=== PATIENT | female | born 1945 | race Caucasian/White ===

== ENCOUNTER → 2016-06-20 18:48 | Outpatient (CLI) | payer MEDICARE ==
[2015-02-02 13:07] VITALS: BMI 35.0
[~2016-06-20 18:48] MED LIST: ACCUPRIL40 MG PO; BAYER CHEWABLE81 MG PO; BRILINTA90 MG PO; CARDURA4 MG PO; COREG25 MG PO; GEMFIBROZIL PO; GLUCOPHAGE500 MG PO; GLUCOTROL 5 MG T5 MG PO; NORVASC5 MG PO; PRAVACHOL40 MG PO; PROTONIX40 MG PO
== END | disposition home or self-care (01) ==
LOC: D.LABREF 18:48
DX: N39.0 Urinary tract infection, site not specified (principal)

== ENCOUNTER 2017-02-17 07:30 | Inpatient (IN) | payer MEDICARE ==
--- NOTE | ~2017-02-17 | HEMODYNAMI ---
PATIENT:SABIHA POP MEDICAL RECORD: [id number] : 41 LOC[facility] [id number] ADMISSION DATE: 02/17/17 Generatedon:02/19/20178:54 Patient name: SABIHA POP Patient #: [id number] SSN: : Date of study: 02/19/2017 Page: Of Hemodynamic Procedure Report Patient Data Patient Demographics Procedure consent was obtained First Name: SABIHA Gender: Female Last Name: DONN : 1945 [facility] Initial: ALLAN Age: 71 year(s) Patient #: [id number] Race: Additional ID: [id number] Contact details Address: [address] [place] [address] DRIVE State: [place] City: [place] Zip code: [address] Past Medical History History of disease Date Diagnosis Comments CAD Allergies Allergen Reaction Date Comments Reported Other allergy 01/24/2015 steroid shots Other allergy 02/19/2017 Steriodal muscle blockers, methylprednisolone Admission Admission Data Admission Date: 02/17/2017 Admission Time: 9:58 Room #: D.2124 Lab Results Lab Result Date: 02/19/2017 Lab Result Time: 0:00 Biochemistry Name Units Result Min Max BUN mg/dl 21 --(----)-* 7 18 Creatinine mg/dl 1.2 --(---*)-- 0.6 1.3 CBC Name Units Result Min Max Hemoglobin g/dl 12.2 *-(----)-- 13.5 17.5 Procedure Procedure Types Cath Procedure Diagnostic Procedure LHC LHC w/Coronaries FFR/IVUS Intra-Coronary IVUS Initial PCI Procedure Coronary Stent Initial Miscellaneous Procedures Moderate Sedation up to 15 minutes Procedure Description Procedure Date Procedure Date: 02/19/2017 Procedure Start Time: 8:29 Procedure End Time: 8:50 Procedure Staff Name Function J Luis Rodríguez MD Performing Physician Rich Mercer RT Scrub Melissa Givens RT Monitor Kiara Kowalski RN Nurse Procedure Data Cath Procedure Fluoroscopy Diagnostic fluoroscopy Total fluoroscopy Time: 5 time: 5 min min Diagnostic fluoroscopy Total fluoroscopy dose: 816 dose: 816 mGy mGy Contrast Material Contrast Material Type Amount (ml) Isovue 300 98 Entry Location Entry Primary Successful Side Size Upsize Upsize Entry Closure Hernández ccessful Closure Location (Fr) 1 (Fr) 2 (Fr) Remarks Device Remarks Radial Right 6 Fr Mechanical tr artery Short Compression Estimated blood loss: 10 ml Diagnostic catheters Device Type Used For End Catheter Placement Diagnostic Terumo 5Fr Procedure [place] 110cm catheter Procedure Complications No complications Procedure Medications Medication Administration Route Dosage Oxygen NC 2 l/min 0.9% NaCl I.V. 50 ml/hr Lidocaine 2% added to field 20 Heparin Flush Bag added to field 2 bags (1000units/500ml NS) Versed I.V. 1 mg Fentanyl I.V. 50 mcg Radial Cocktail I.A. 1 syringe (Verapomil 2mg/Nitro 400mcg/Heparin 1500units) Heparin Bolus I.V. 4000 units Versed I.V. 1 mg Hemodynamics Rest HGB: 12.2 (g/dl) Heart Rate: 104 (bpm) Snapshots Pre Cath Intra NCS Post Cath Vital Signs Time Heart Resp SPO2 NIBP (mmHg) Rhythm Pain Sedation Rate (ipm) (%) Status Level (bpm) 8:14:15 93 21 98 182/103(150) NSR 0 (11) 10(A) , No pain 8:18:39 87 17 99 202/97(159) NSR 0 (11) 10(A) , No pain 8:23:08 107 27 97 201/89(156) NSR 0 (11) 10(A) , No pain 8:27:36 104 20 97 203/87(135) NSR 0 (11) 10(A) , No pain 8:32:06 100 25 98 194/99(133) NSR 0 (11) 9(A) , No pain 8:36:24 105 24 96 138/74(102) NSR 0 (11) 9(A) , No pain 8:41:36 95 22 95 159/74(114) NSR 0 (11) 9(A) , No pain 8:45:58 91 22 97 176/74(111) NSR 0 (11) 10(A) , No pain 8:50:26 96 17 97 194/82(113) NSR 0 (11) 10(A) , No pain Medications Time Medication Route Dose Verified Delivered Reason Notes Effectiveness by by 8:08:44 Oxygen NC 2 l/min J Luis Craig used for Anne Kowalski RN procedure 8:12:37 0.9% NaCl I.V. 50 J Luis Alarconie Per physician ml/hr Anne Kowalski RN 8:12:56 Lidocaine 2% added 20ml J Luis Dietz for local to vial Anne Rodríguez MD anesthetic field 8:13:01 Heparin Flush added 2 bags J Luis Dietz used for Bag to Anne Rodríguez MD procedure (1000units/500ml field NS) 8:26:00 Fentanyl I.V. 50 mcg J Luis Craig for sedation Anne Kowalski RN 8:26:55 Versed I.V. 1 mg J Luis Craig for sedation Anne Kowalski RN 8:32:35 Radial Cocktail I.A. 1 J Luis Dietz for (Verapomil syringe Anne Rodríguez MD vasodilation 2mg/Nitro 400mcg/Heparin 1500units) 8:35:24 Versed I.V. 1 mg J Luis Craig for sedation Anne Kowalski RN 8:38:39 Heparin Bolus I.V. 4000 J Luis Craig for verif ied units Anne Kowalski RN anticoagulation with dr rodríguez Procedure Log Time Note 7:44:53 Informed consent obtained and on chart 7:45:27 Diagnostic Cath status Elective 7:45:29 Melissa Givens RT(R) sent for patient. Start room use. 7:45:30 Time tracking: Regular hours 7:45:33 Plan of Care:Hemodynamics will remain stable., Cardiac rhythm will remain stable., Comfort level will be maintained., Respiratory function will remain adequate., Patient/ family verbilizes understanding of procedure., Procedure tolerated without complication., Recovers from procedure without complications.. 7:45:47 H&P Date Dictated: 02/17/2017 Within 30 days and on chart.. 8:08:44 Oxygen 2 l/min NC was administered by Kiara Kowalski RN; used for procedure; 8:12:37 0.9% NaCl 50 ml/hr I.V. was administered by Kiara Kowalski RN; Per physician; 8:12:56 Lidocaine 2% 20ml vial added to field was administered by J Luis Rodríguez MD; for local anesthetic; 8:13:01 Heparin Flush Bag (1000units/500ml NS) 2 bags added to field was administered by J Luis Rodríguez MD; used for procedure; 8:13:06 Vital chart was started 8:21:00 Patient received from Med II to CCL 2 Alert and oriented. Tansferred to table in Supine position. 8:21:01 Warm blankets applied, and deysi hugger turned on for patient comfort. 8:21:02 Correct patient and procedure confirmed by team. 8:21:03 ECG and BP/O2 sat monitors applied to patient. 8:21:05 Baseline sample Acquired. 8:21:12 Full Disclosure recording started 8:21:16 Pre-procedure instructions explained to patient. 8:21:20 Patient NPO since Midnight. 8:22:08 Patient allergic to Other allergySteriodal muscle blockers, methylprednisolone 8:22:12 Is patient on blood thinner?Yes 8:22:18 ACC The patient was administered the following blood thiners within the last 24 hours: ACCAspirin, ACCBrilinta 8:22:21 Patient diabetic? Yes. 8:22:22 If diabetic: On Metformin? Yes 8:22:26 If on Metformin: Last Dose? 02/18/2017 8:22:35 Snore? Yes 8:22:38 Sleep apnea? No 8:22:47 Patient pain scale 0/10 ?. 8:22:57 IV patent on arrival in left hand, left forearm with 0.9% NaCl at [facility]. 8:23:32 Lab Result : BUN 21 mg/dl 8:23:32 Lab Result : Hemoglobin 12.2 g/dl 8:23:32 Lab Result : Creatinine 1.2 mg/dl 8:23:37 Lab results completed and on chart. 8:23:41 Right Radial & Right Groin area was prepped with chlora-prep and draped in sterile fashion 8:23:41 Alarms reviewed by R. N. 8:23:42 Sharps counted by scrub and verified by RDonN. 8:23:43 Physician paged 8:23:44 Physician arrived 8:24:49 --------ALL STOP TIME OUT------ 8:24:50 Final Timeout: patient, procedure, and site verified with staff and physician. All members of the team are in agreement. 8:24:52 Right Radial & Right Groin site verified by team. 8:24:55 Physical assessment completed. ASA score P 3 - A patient with severe systemic disease as per J Luis Rodríguez MD. 8:25:00 Sedation plan: IV Moderate Sedation Versed, Fentanyl 8:25:06 Use device set Radial Dx 8:25:08 Acist Syringe opened to sterile field. 8:25:08 Medline Cath Pack opened to sterile field. 8:25:08 Bag Decanter opened to sterile field. 8:25:09 Terumo 6Fr Slender Glidesheath opened to sterile field. 8:25:09 St Kyaw 260cm J .035 wire opened to sterile field. 8:25:10 Acist Hand Control opened to sterile field. 8:25:10 Acist Manifold opened to sterile field. 8:25:11 Tegaderm 4 x 4 opened to sterile field. 8:25:11 MBrace Wrist Support opened to sterile field. 8:26:00 Fentanyl 50 mcg I.V. was administered by Kiara Kowalski RN; for sedation; 8::55 Versed 1 mg I.V. was administered by Kiara Kowalski RN; for sedation; 8:27:21 Zero performed for pressure channel P1 8:29:28 Procedure started. 8:29:41 Local anesthetic to right radial artery with Lidocaine 2% by J Luis Rodríguez MD.INITIAL ACCESS ONLY 8:31:29 Local anesthetic to right radial artery with Lidocaine 2% by J Luis Rodríguze MD.ADDITIONAL ACCESS 8:31:38 A 6 Fr Short sheath was inserted into the Right Radial artery 8:32:34 A Diagnostic Terumo 5Fr [place] 110cm catheter was advanced over the wire and used for Procedure. 8:32:35 Radial Cocktail (Verapomil 2mg/Nitro 400mcg/Heparin 1500units) 1 syringe I.A. was administered by J Luis Rodríguez MD; for vasodilation; 8:34:07 LV angiography performed. 8:34:14 EF : 35 % 8:34:28 RCA angiography performed. 8:34:48 Catheter removed. 8:35:24 Versed 1 mg I.V. was administered by Kiara Kowalski RN; for sedation; 8:35:35 Cordis 6FR XBLAD 3.5 guide catheter opened to sterile field. 8:35:40 LCA angiography performed. 8:38:07 Doe Whisper J 300cm 0.014 guide wire opened to sterile field. 8:38:09 Merit BasixCompak Inflation Kit opened to sterile field. 8:38:10 [place] Chilkat Eagleye IVUS Catheter opened to sterile field. 8:38:23 whisp wire advanced. 8:38:39 Heparin Bolus 4000 units I.V. was administered by Kiara Kowalski RN; for anticoagulation; verified with dr rodríguez 8:39:46 Wire advanced across lesion. 8:39:55 IVUS catheter advanced over wire. 8:41:58 IVUS catheter removed over wire. 8:43:55 Inflation Number: 1 A [place] OTW 3.5 x 38 stent was prepped and advanced across the Mid LAD. The stent was deployed at 17 FITO for 0:10 (min:sec). 8:46:14 Terumo TR Band Standard opened to sterile field. 8:46:28 Stent catheter was removed intact over wire. 8:46:29 Wire removed. 8:46:54 Guide catheter removed. 8:47:07 Sheath removed intact; hemostasis achieved with Mechanical Compression to the Right Radial artery. 8:47:10 Procedure ended.(Physican Out) 8:47:23 Fluoroscopy time 05.00 minutes. 8:47:37 Fluoroscopy dose: 816 mGy 8:47:37 Flurop Dose total: 816 8:47:41 Contrast amount:Isovue 300 98ml. 8:47:43 Sharps counted by scrub and verified by R.N. 8:47:48 TR band inflated with 10cc of air. 8:47:50 Insertion/operative site no bleeding no hematoma. 8:48:12 Post right radial artery:stable 8:48:14 Post Procedure Pulses reassessed and unchanged 8:48:22 Post-procedure physical assessment completed. ASA score P 3 - A patient with severe systemic disease as per J Luis Rodríguez MD. 8:48:25 Post procedure rhythm: unchanged. 8:48:29 Estimated blood loss: 10 ml 8:48:31 Post procedure instruction explained to patient.Patient verbalizes understanding. 8:49:06 Procedure type changed to Cath procedure, Diagnostic procedure, LHC, LHC w/Coronaries, FFR/IVUS, Intra-Coronary IVUS Initial, PCI procedure, Coronary Stent Initial, Miscellaneous Procedures, Moderate Sedation up to 15 minutes 8:49:24 Procedure and supply charges have been captured, reviewed, submitted and are correct. 8:49:53 Procedure Complication : No complications 8:50:00 Vital chart was stopped 8:50:01 See physician's report for complete and final results. 8:50:04 Report given to [facility]. 8:50:07 Patient transfered to [facility] with Bed. 8:50:09 Procedure ended. 8:50:09 Full Disclosure recording stopped 8:50:47 End room use (Document Last) Intervention Summary Intervention Notes Time ActionType Lesion and Equipment Action# Pressure Duration Attributes Used 8:43:55 Place stent Mid LAD [place] OTW 1 17 00:10 3.5 x 38 stent Device Usage Item Name Manufacture Quantity Catalog Hospital Part Current Minima l Lot# / Number Charge Number Stock Stock Serial# Code Acist Acist 1 54398 360208 361733 129768 20 Syringe Medical Systems Inc Medline Cardinal 1 [id number] 149917 76417 226082 5 Cath Pack Health Bag Microtek 1 2002S 312111 55736 991072 5 MontaVista [employer] Inc. Terumo 6Fr Terumo 1 [id number] 918514 364595 632[address] Kyaw 1 721447 540966 237219 282665 30 260cm J .035 wire Acist Hand Acist 1 47550 531801 713615 761184 5 Control Medical Systems Inc Acist Acist 1 26810 478620 386516 001541 5 Manifold Medical Systems Inc Tegaderm 4 3M 1 1626W 553639 484452 864607 5 x 4 MBrace Advanced 1 140-0250-00 407147 68693 793206 5 Wrist Vascular Support Dynamics Diagnostic Terumo 1 04-6289 649546 305246 486305 5 Terumo 5Fr Belmont 110cm catheter Cordis 6FR Cardinal 1 [id number] 268308 547790 979585 10 XBLAD 3.5 Health guide catheter Doe Doe 1 [id number] 102728 865036 491486 5 Whisper J Vascular 300cm 0.014 guide wire Merit Merit 1 DN8630 125844 216452 298277 15 BasixCompak Medical Inflation Kit [place] 1 [id number] 929809 018198 131340 8 Chilkat Eagleye IVUS Catheter Brooks OTW Medtronic 1 [id number] 754575 1949623 511919 5 [id number] 3.5 x 38 stent Terumo TR Terumo 1 [id number] 502273 365292 869242 40 Band Standard Signature Audit [place] Stage Time Signature Unsigned Intra-Procedure 02/19/2017 Melissa Givens 8:54:16 AM RT(R) Signatures Monitor : Melissa Givens Signature : RT Date : Time : [id number] [place] [address]
[~2017-02-17 07:30] MED LIST changes: -GEMFIBROZIL PO; +GEMFIBROZIL600 MG PO
[2017-02-17 08:06] LABS: BASOPHILS 0.3 % (0-2); EOSINOPHILS 6.7 % (0-7); HEMATOCRIT 33.2 % (36.0-48.0); HEMOGLOBIN 11.4 g/dL (12-16); IMMATURE GRANULOCYTES 0.6 % (0-5); LYMPHOCYTES 19.6 % (15-50); MCH 32.9 pg (26.0-34.0); MCHC 34.3 g/dL (31.0-37.0); MCV 95.7 fL (80.0-100.0); MEAN PLATELET VOLUME 9.6 fL (7.4-10.4); MONOCYTES 6.6 % (2-11); NEUTROPHILS 66.2 % (40-80); PLATELET COUNT 237 10x3/uL (130-400); RBC 3.47 10x6/uL (4.00-5.40); RDW 13.5 % (11.5-14.5); WBC 9.8 10x3/uL (4.8-10.8)
[2017-02-17 08:22] LABS: ALBUMIN 2.8 g/dL (3.4-5.0); ALKALINE PHOSPHATASE 40 U/L (46-116); ALT (SGPT) 16 U/L (10-68); CALC OSMOLALITY 283 mosm/kg (275-300); CALCIUM 9.4 mg/dL (8.5-10.1); CARBON DIOXIDE 27.8 mmol/L (21.0-32.0); CHLORIDE - SERUM 102 mmol/L (98-107); CREATININE - SERUM 1.1 mg/dL (0.6-1.3); GLUCOSE 192 mg/dL (74-106); POTASSIUM - SERUM 3.9 mmol/L (3.5-5.1); PROTEIN - SERUM 6.5 g/dL (6.4-8.2); SODIUM 139 mmol/L (136-145); UREA NITROGEN 14 mg/dL (7-18); eGFR NON AFRICAN AMERICAN 51 mL/min (90-120)
[2017-02-17 08:35] LABS: CHOL - HDL RATIO 5.3 ratio (2.3-4.1); CHOLESTEROL, TOTAL 160 mg/dL (0-200); CREATINE KINASE 55 UL (21-215); HDL CHOLESTEROL 30 mg/dL (32-96); LDL CHOLESTEROL 73 mg/dL (0-100); LDL-HDL RATIO 2.4 ratio (1.5-3.5); TRIGLYCERIDE 288 mg/dL (30-200)
[2017-02-17 08:36] LABS: TROPONIN-I < 0.017 ng/mL (0.000-0.060)
[2017-02-17] MEDS ORDERED: VITAMIN D31000 UNI2 PO (11:24)
--- NOTE | 2017-02-17 11:59 | NUR ---
RECIEVED FROM ER. LUCIO AND ORIENTED. V/S STABLE HOB UP, CALL LIGHT IN REACH TELEMERTY SHOWS SR. WILL MONITOR
[2017-02-17 12:48] VITALS: BP 148/73
[2017-02-17 17:14] VITALS: BP 169/69
[2017-02-17 19:00] VITALS: BP 158/73
--- NOTE | 2017-02-17 20:00 | NUR ---
PT SITTING UP IN BEDSIDE CHAIR WITH SON AT HER SIDE.SON HAS BEEN OUT TO NURSES STATION ONCE REQUESTING THE EGGCRATE BE PLACED ON HIS MOTHER'S BED THAT WAS ORDERED ON DAY SHIFT. SPOKE WITH DISH MAKER, PRINCE, AND SHE WAS UNAWARE OF ORDER, BUT WILL GET THE EGGCRATE CANDICE.
--- NOTE | 2017-02-17 21:12 | NUR ---
SPOKE WITH CHILD NEUROLOGIST PRINCE AND REMINDED HER THAT EGGCRATE STILL NEEDED.
[2017-02-18] VITALS (7 sets, daily range): BP systolic 123–168; BP diastolic 54–75
--- NOTE | 2017-02-18 01:10 | NUR ---
PAGE TO DR FERREIRA, CARDIOLOGY HAS BEEN CONSULTED FOR NEW ONSET CHF. REPORTED THAT PT IS FEELING "SMOTHERED". TIGHT AIR EXCHANGED NOTED, DO NOT HEAR ANY AUDIBLE CRACKLES. ORDERS RECIEVED FOR IV DRIP OF DOBUTAMINE AT 5 AND BUMEX 2 MG SIVP EVERY 6 HOURS. ATIVAN 0.5MG BY MOUTH EVERY 6 HOURS NEEDED FOR ANXIETY AND DUONEB BREATHING TREATMENTS EVERY 4 HOURS FOR SHORTNESS OF BREATH. RT CURRENTLY IN ROOM PROVIDING BREATHING TREATMENT. CONTROL CHEMIST CONTACTED FOR NEWLY ORDERED MEDS.
--- NOTE | 2017-02-18 02:15 | NUR ---
BUMEX 2MG SIVP HAS BEEN ADMINISTERED. DOBUTAMINE DRIP AT 5MCG/KG/MIN NOW UP AND INFUSING, WT 108KG, INFUSING AT 16.6 ML/HR. PT GIVEN AN ATIVAN 0.5MG BY MOUTH FOR HER ANXIETY. PT/FAMILY EDUCATION ON PURPOSE OF BUMEX IV, THE PURPOSE OF THE DOBUTAMINE DRIP AND THE ATIVAN WAS TO HER HELP BE LESS ANXIOUS. PT STATES SHE IS APPRECIATIVE OF NEW INTERVENTIONS. FAMILY MEMBER STAYING AT BEDSIDE.
[2017-02-18 04:47] LABS: BASOPHILS 0.3 % (0-2); EOSINOPHILS 5.2 % (0-7); HEMATOCRIT 35.2 % (36.0-48.0); HEMOGLOBIN 12.2 g/dL (12-16); IMMATURE GRANULOCYTES 0.8 % (0-5); LYMPHOCYTES 17.3 % (15-50); MCH 32.8 pg (26.0-34.0); MCHC 34.7 g/dL (31.0-37.0); MCV 94.6 fL (80.0-100.0); MEAN PLATELET VOLUME 9.8 fL (7.4-10.4); MONOCYTES 8.2 % (2-11); NEUTROPHILS 68.2 % (40-80); RBC 3.72 10x6/uL (4.00-5.40); RDW 13.5 % (11.5-14.5); WBC 9.2 10x3/uL (4.8-10.8)
[2017-02-18 04:58] LABS: ANION GAP 11.1 mmol/L (8-16); CALCIUM 9.8 mg/dL (8.5-10.1); CREATININE - SERUM 1.3 mg/dL (0.6-1.3)
[2017-02-18 05:01] LABS: PLATELET COUNT 288 10x3/uL (130-400)
[2017-02-18 05:17] LABS: MAGNESIUM - SERUM 0.9 mg/dL (1.8-2.4); POTASSIUM - SERUM 3.1 mmol/L (3.5-5.1)
--- NOTE | 2017-02-18 06:58 | HP ---
PATIENT: SABIHA POP MEDICAL RECORD: [id number] ACCOUNT: [id number] LOCATION:[address] : 41 ADMISSION DATE: 02/17/17 HISTORY AND PHYSICAL EXAMINATION DATE OF ADMISSION: ____ CHIEF COMPLAINT: Chest pain and shortness of breath. HISTORY OF PRESENT ILLNESS: The patient is a 71-year-old female with known history of arteriosclerotic heart disease. The patient was in the office last week, diagnosed with pneumonia. The patient states she is no longer running fever. The antibiotics have helped. She did have some green-yellow sputum initially, had resolved; but last night, she developed substernal chest pain, also had acute shortness of breath, and unable to sleep, presents to the Emergency Room. PAST MEDICAL HISTORY: Her past history is significant in that she has had arteriosclerotic heart disease with 2 stents placed 2 years ago. She has also had history of having hypertension, hyperlipidemia, diabetes mellitus, peripheral neuropathy, vitamin D deficiency, and dependent edema. She had had hysterectomy in 1976. 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 SOCIAL HISTORY: She is retired. She worked at [employer]. She is educated till 12th grade. She is a . FAMILY HISTORY: Father had hyperlipidemia and also asthmatic COPD, of lung cancer at 75. Mother had hyperlipidemia, also hypertension, and diabetes. MEDICATIONS: Include aspirin 81 mg once a day, Coreg 25 one p.o. b.i.d., Plavix 75 mg once a day, doxazosin 4 mg daily, gabapentin 300 mg one 3 times a day, gemfibrozil 600 mg b.i.d., glipizide 10 mg p.o. b.i.d., indapamide 1.25 p.o. q.a.m. p.r.n. swelling, metformin 500 mg two tablets p.o. b.i.d., nateglinide 120 mg p.o. b.i.d., pantoprazole 40 mg once a day, pravastatin 40 mg once a day, quinapril 40 mg once a day, and vitamin D3 1000 international units once a day. ALLERGIES: CORTICOSTEROIDS. REVIEW OF SYSTEMS: CONSTITUTIONAL: She denies any headache, seizure, or syncope. She denies change in visual or auditory acuity. PULMONARY: The patient does report having increasing shortness of breath, worse with lying down. CARDIOVASCULAR: She did have chest pain. She described it as squeezing sensation. She did have shortness of breath. GI: No chronic nausea, vomiting, melena, or hematochezia. : No urgency, frequency, or dysuria. PHYSICAL EXAMINATION: VITAL SIGNS: In the Emergency Room, the patient's temperature was 97.9, her pulse was 87, respirations 24, and blood pressure 158/68. HEENT: Head is normocephalic. No lesions. Ears; TMs are clear. Eyes; pupils are equal, round, and reactive to light. Extraocular movements are intact. Her nasal cavity, oral cavity, and oropharynx are clear. HISTORY AND PHYSICAL [id number] SABIHA POP NECK: Supple. There is no adenopathy. HEART: Regular rate. LUNGS: Clear. ABDOMEN: Soft. Bowel sounds are positive. EXTREMITIES: Her lower extremities have no pretibial edema. DIAGNOSTIC DATA: She had an EKG showing normal sinus rhythm, left bundle-branch block, rate is 91. She had a chest x-ray showing borderline cardiomegaly. LABORATORY DATA: The patient had white count 9.8, hemoglobin 11.4, hematocrit 33.2, and her platelets are 237. Sodium 139, potassium 3.9, chloride is 102, BUN is 14, creatinine 1.1, and glucose is 191. She had an elevated proBNP at 3380. She had negative cardiac enzymes. ASSESSMENT: 1. CHF. 2. Chest pain. History of arteriosclerotic heart disease, stents times 2 two years ago. 3. Hyperlipidemia. 4. Hypertension. 5. Diabetes mellitus. 6. Morbid obesity. PLAN: The patient will be admitted. Cardiology consultation will be obtained. She will be placed on IV Lasix. Also, 50-ounce fluid restriction. The patient will also have an echocardiogram. Continue to follow her cardiac enzymes. TRANSINT:[id number] Voice Confirmation ID: [id number] DOCUMENT ID: [id number] JULIO CHAMBERS MD at 0658 CC: [id number] DICTATION DATE: 02/17/171738 COACH DRIVER: 02/17/170 ADM IN [facility] [address] [facility] [place] [address]
--- NOTE | 2017-02-18 07:10 | NUR ---
RECEIVED REPORT. ASSUMED CARE OF PATIENT. PATIENT SITTING UP TO CHAIR AT BEDSIDE. PATIENTS SON ALSO PRESENT. RESP EVEN AND UNLABORED. DOBUTAMINE INFUSING ORDERED. NO DISTRESS.
--- NOTE | 2017-02-18 09:20 | NUR ---
20 GAUGE PLACED TO LEFT LATERAL AC AREA X 1 STICK. GOOD BLOOD RETURN, EASY FLUSH. TAPED, DATED AND SECURED. NO DISTRESS.
--- NOTE | 2017-02-18 11:31 | NUR ---
FSBS 217. 4 UNITS HUMULOG ADMINISTERED PER SLIDING SCALE.
--- NOTE | 2017-02-18 13:31 | NUR ---
20 GAUGE IV REMOVED FROM RIGHT HAND. IV FLUIDS LEAKING FROM SITE. IV SITE EASILY FLUSHED. NEW DRESSING APPLIED, SITE CONTINUED TO LEAK. NO S/S INFILTRATION. TUBING TIGHT AT ALL HUBS. NO DISTRESS. CATHETER TIP INTACT UPON REMOVAL. PRESSURE APPLIED. 2X2 APPLIED AND SECURED WITH TAPE. NO DISTRESS.
--- NOTE | 2017-02-18 14:17 | NUR ---
22 GAUGE IV PLACED TO LEFT HAND X 1 STICK. GOOD BLOOD RETURN, EASY FLUSH. TAPED DATED AND SECURED. TOELRATED IV PLACEMENT WELL. DOBUTAMINE INFUSING ORDERED.
--- NOTE | 2017-02-18 15:40 | NUR ---
MEDICATED FOR ANXIETY AT THIS TIME. CALL LIGHT WITHIN REACH. NO DISTRESS. FRIENDS AND FAMILY AT BEDSIDE.
--- NOTE | 2017-02-18 17:02 | NUR ---
FSBS 187. 2 UNITS HUMALOG ADMINISTERED PER SLIDING SCALE.
--- NOTE | 2017-02-18 19:25 | NUR ---
ALERT/AWAKE WATCHING TV. DENIES PAIN OR ANY NEEDS. IV IN L HAND WITH DOBUTAMINE INFUSING AT 16.2 ML/HR. 02 ON AT 2L/NC. TELEMETRY LEADS IN PLACE. ORIENTED TO CL FOR ANY NEEDS.
[2017-02-19] VITALS: BP 127/56
[2017-02-19 04:00] VITALS: BP 177/73
[2017-02-19 04:34] LABS: BASOPHILS 0.4 % (0-2); EOSINOPHILS 5.3 % (0-7); HEMATOCRIT 35.1 % (36.0-48.0); HEMOGLOBIN 12.2 g/dL (12-16); IMMATURE GRANULOCYTES 0.5 % (0-5); LYMPHOCYTES 29.2 % (15-50); MCHC 34.8 g/dL (31.0-37.0); MCV 94.9 fL (80.0-100.0); MEAN PLATELET VOLUME 9.7 fL (7.4-10.4); MONOCYTES 8.6 % (2-11); PLATELET COUNT 305 10x3/uL (130-400); RDW 13.5 % (11.5-14.5); WBC 7.3 10x3/uL (4.8-10.8)
[2017-02-19 05:10] LABS: ANION GAP 15.5 mmol/L (8-16); CALCIUM 9.1 mg/dL (8.5-10.1); CARBON DIOXIDE 28.7 mmol/L (21.0-32.0); POTASSIUM - SERUM 3.2 mmol/L (3.5-5.1)
[2017-02-19 05:15] LABS: CREATININE - SERUM 1.2 mg/dL (0.6-1.3)
--- NOTE | 2017-02-19 05:56 | NUR ---
ADMIN 4 UNITS HUMALOG FOR BS 238. HOUSEKEEPING SUPERVISOR HOTEL SET UP FOR HIBICLENS BATH.
--- NOTE | 2017-02-19 07:30 | NUR ---
ASSESSMENT DONE. DENIES NEEDS.
--- NOTE | 2017-02-19 07:50 | NUR ---
TO ADJUNCT BUSINESS INSTRUCTOR PER BED
[2017-02-19 08:52] VITALS: BP 138/60
--- NOTE | 2017-02-19 08:55 | NUR ---
RETURN FROM COLD STORAGE SUPERINTENDENT PER BED. TR-BAND TO RT WRIST.
--- NOTE | 2017-02-19 10:20 | NUR ---
BACK FROM DIRECTOR ENTERPRISE DATA ARCHITECTURE. VS WNL. IV PATENT. FAMILY AT BS. WILL CONT. PLAN OF CARE.
[2017-02-19 15:35] VITALS: BP 103/54
--- NOTE | 2017-02-19 18:06 | NUR ---
WITHOUT CHANGES OR DISTRESS NOTED AT THIS TIME. DENIES NEEDS.
--- NOTE | 2017-02-19 19:45 | NUR ---
ALERT/AWAKE SITTING ON SIDE OF BED. IV IN L HAND INTACT/PATENT. IV IN L UA INTACT SL. TELEMETRY SHOWS [address] WITH FEW PVC'S. BANDAID ON RT WRIST OF HEART CATH SITE. DENIES ANY NEEDS OR DISCOMFORTS.
[2017-02-19 21:47] VITALS: BP 165/74
[2017-02-19 22:09] VITALS: BP 164/74
--- NOTE | 2017-02-19 22:30 | NUR ---
REQUESTED YULIA CRACKERS AND SKIM MILK. EMPTIED URINE IN HAT. NO OTHER NEEDS VOICED.
[2017-02-20 02:33] VITALS: BP 160/78
[2017-02-20 04:21] LABS: BASOPHILS 0.5 % (0-2); HEMATOCRIT 35.4 % (36.0-48.0); IMMATURE GRANULOCYTES 0.5 % (0-5); MCH 32.4 pg (26.0-34.0); MCHC 33.9 g/dL (31.0-37.0); MCV 95.7 fL (80.0-100.0); MEAN PLATELET VOLUME 9.4 fL (7.4-10.4); MONOCYTES 8.3 % (2-11); NEUTROPHILS 56.7 % (40-80); PLATELET COUNT 302 10x3/uL (130-400); RDW 13.8 % (11.5-14.5); WBC 7.3 10x3/uL (4.8-10.8)
[2017-02-20 04:47] LABS: ANION GAP 10.6 mmol/L (8-16); CALCIUM 9.3 mg/dL (8.5-10.1); CREATININE - SERUM 1.2 mg/dL (0.6-1.3); POTASSIUM - SERUM 3.6 mmol/L (3.5-5.1)
--- NOTE | 2017-02-20 05:47 | NUR ---
C/O LEFT HAND IV HURTING. REMOVED AND RESTARTED DOBUTAMINE IN LEFT UA IV.
[2017-02-20 07:07] VITALS: BP 180/77
[2017-02-20 08:00] VITALS: BP 174/76
--- NOTE | 2017-02-20 09:51 | NUR ---
UP AMBULATING HALLWAY WITH PT ASSIST.
[2017-02-20 12:00] VITALS: BP 180/65
--- NOTE | 2017-02-20 12:32 | NUR ---
DCD. TO PRIVATE CAR PER WHEEL CHAIR
--- NOTE | 2017-02-20 14:42 | NUR ---
LYING QUIETY WITH EYES CLOSED. NO DISTRESS NOTED
[2017-02-20 16:00] VITALS: BP 143/56
--- NOTE | 2017-02-20 17:56 | NUR ---
HOB UP FOR DDIET. DENIES ANY NEEDS. TLELMETRY SHOWS SR
--- NOTE | 2017-02-20 18:02 | NUR ---
HOB UP FOR DIET. FAMILY AT BEDSIDE. TELEMERTY SHOWS SR
--- NOTE | 2017-02-20 19:49 | NUR ---
ALERT/AWAKE DENIES TALKING ON PHONE. IV IN L UA INTACT WITH DOBUTAMIN INFUSING AT 16.2ML/HR. TELEMETRY SHOWS [address] WITH SOME PVC'S. DENIES ANY NEEDS OR PAIN.
[2017-02-20 20:00] VITALS: BP 148/72
--- NOTE | 2017-02-20 21:45 | NUR ---
ADMIN SCHED MEDS AND CHECKED BS AT 163. ADMIN HUMALOG 2 UNITS. REQUESTED DOOR CLOSED TO SLEEP. NO OTHER NEEDS VOICED.
[2017-02-21 04:00] VITALS: BP 92/55
[2017-02-21 04:46] LABS: BASOPHILS 0.4 % (0-2); EOSINOPHILS 5.7 % (0-7); HEMATOCRIT 34.3 % (36.0-48.0); HEMOGLOBIN 11.5 g/dL (12-16); IMMATURE GRANULOCYTES 0.5 % (0-5); MCH 32.2 pg (26.0-34.0); MCHC 33.5 g/dL (31.0-37.0); MCV 96.1 fL (80.0-100.0); MEAN PLATELET VOLUME 9.7 fL (7.4-10.4); MONOCYTES 7.8 % (2-11); NEUTROPHILS 63.6 % (40-80); PLATELET COUNT 302 10x3/uL (130-400); RBC 3.57 10x6/uL (4.00-5.40); RDW 13.7 % (11.5-14.5)
[2017-02-21 04:55] LABS: INR 0.93 (0.85-1.17); PROTIME 12.3 SECONDS (11.6-15.0)
[2017-02-21 05:03] LABS: ANION GAP 14.4 mmol/L (8-16); CALCIUM 9.1 mg/dL (8.5-10.1); CARBON DIOXIDE 28.4 mmol/L (21.0-32.0); CREATININE - SERUM 1.2 mg/dL (0.6-1.3); MAGNESIUM - SERUM 1.1 mg/dL (1.8-2.4); POTASSIUM - SERUM 3.8 mmol/L (3.5-5.1)
--- NOTE | 2017-02-21 05:20 | NUR ---
C/O IV HURTING, SMALL AMOUNT REDNESS AND SWELLING NOTED. REMOVED IV, PLACE DRSG AND WARM PACK ON HER ARM.
[2017-02-21] MEDS ORDERED: PLAVIX75 MG PO (07:47)
[2017-02-21] MEDS ORDERED: BUMEX2 MG PO (07:48)
[2017-02-21] MEDS ORDERED: K-DUR20 MEQ PO (07:48)
--- NOTE | 2017-02-21 09:26 | NUR ---
ASSESSMENT DONE. DENIES NEEDS.
--- NOTE | 2017-02-21 09:32 | NUR ---
PER PATIENT REQUEST: MEDS CALLED TO [facility] (OLD) BUMEX 2 MG #30 WITH NO REFILLS TO TAKE 0600 AND 1800 K DUR 20 MEQ # 90 WITH NO REFILLS TO TAKE ONE 3 X A DAY SPOKE WITH YAJAIRA (PHARMACIST)
--- NOTE | 2017-02-21 10:02 | NUR ---
UP TO CHAIR WITH CALL LIGHT IN REACH. NO NEEDS VOICED. WILL MONITOR.
--- NOTE | 2017-02-21 11:17 | NUR ---
DC GIVEN TO PT
--- NOTE | 2017-02-21 12:26 | NUR ---
DC HOME PER PERSONAL CAR
--- NOTE | 2017-02-21 14:24 | NUR ---
Patient Name: SABIHA POP Admission Status: ER Accout number: [id number] Admission Date: 02-19-2017 : 1945 Admission Diagnosis: Attending: JULIO CHAMBERS Current LOS: 2 Anticipated DC Date: 02-21-2017 Planned Disposition: Home Primary Insurance: [facility] LATE ENTRY: Discharge Planning Comments: * Is the patient Alert and Oriented? Yes 0 * How many steps to enter\exit or inside your home? 3 0 * PCP DR. CHAMBERS 0 * Pharmacy [facility] 0 * Preadmission Environment Home Alone 0 * ADLs Independent 0 * Equipment Cane 0 * Other Equipment NO MEDICAL EQUIPMENT PROVIDER PREFERENCE 0 * List name and contact numbers for known caregivers / representatives who currently or will assist patient after discharge: JUAN A DINH, SISTER, 0 * Community resources currently utilized None 0 * Please name any agencies selected above. NONE 0 * Additional services required to return to the preadmission environment? No 0 * Can the patient safely return to the preadmission environment? Yes 0 * Has this patient been hospitalized within the prior 30 days at any hospital? No 0 CM MET WITH PT IN ROOM TO DISCUSS DISCHARGE PLANNING AND NEEDS. PT REPORTS LIVING AT HOME INDEPENDENTLY AND ALONE. PT HAS A CANE WITH NO MEDICAL EQUIPMENT PROVIDER PREFERENCE. PT HAS NO OUTSIDE SERVICES ASSISTING IN THE HOME. CM DISCUSSED AVAILABILITY OF HOME HEALTH, REHAB SERVICES AND MEDICAL EQUIPMENT. PT DENIES DISCHARGE NEEDS, REPORTS HER SISTER WILL PICK HER UP FOR DISCHARGE HOME. PT HAS AGREED WITH PLAN TO RESIDE WITH HER BROTHER FOR A SHORT TIME AT HIS HOME IN [place], THEY HAVE RAMP ACCESS AND ASSISTANCE OF FAMILY IF ANY IS NEEDED. IMPORTANT MESSAGE FROM MEDICARE PROVIDED AND EXPLAINED. Technical Manager Chemical Plant: [place]
--- NOTE | 2017-02-28 16:47 | OP ---
PATIENT NAME: SABIHA POP MEDICAL RECORD: [id number] :43 LOCATION:D.M2 D.2124 ADMISSION DATE:02/19/17 SURGEON: MAE FERREIRA MD DATE OF OPERATION: 02/19/2017 PROCEDURES: 1. PTCA stent LAD. 2. Intravascular ultrasound. 3. Left heart catheterization. 4. Selective coronary angiography. 5. Left ventriculogram. INDICATIONS: Angina and coronary artery disease. PROCEDURE IN DETAIL: After informed consent was obtained and after detailed explanation of risks, benefits as well as alternative therapies, the patient elected to proceed with angiogram and angioplasty. The right radial area was prepped and draped in normal sterile fashion. The right radial artery was cannulated via modified Seldinger technique with placement of 6-Sudanese sheath. All catheters exchanged through this sheath. FINDINGS: The left ventriculogram was performed in standard 30-degree ARAYA view, reveals an improvement in her ejection fraction, is now at 40%; however, this is most likely secondary to dobutamine. Echocardiogram with ejection fraction in the 25%-30% range. SELECTIVE CORONARY ANGIOGRAPHY: 1. Left main showed no significant angiographic disease. 2. Left anterior descending has a long area of 85% stenosis throughout the proximal vessel confirmed by intravascular ultrasound. 3. Left circumflex has a 50%-70% stenosis in the mid vessel; however, this does not appear critical. 4. The right coronary has previously placed stent. This is widely patent with no significant restenosis. No disease elsewise at the RCA or its branches. PTCA STENT OF THE LAD: The stent used is a 3.5 x 38 mm Brooks. Result was 0% residual stenosis. OVERALL IMPRESSION: Successful percutaneous transluminal coronary angioplasty stent of the left anterior descending going from 85% initial stenosis to 0% residual stenosis. TRANSINT:[id number] Voice Confirmation ID: [id number] DOCUMENT ID: [id number] MAE FERREIRA MD at 1647 CC: [id number] DICTATION DATE: 02/19/17 0851 HOSPITAL ACCOUNT LIAISON: 02/19/1718 DIS IN 02/21/17 [place] [address]
--- NOTE | 2017-02-28 16:47 | EC ---
PATIENT:SABIHA POP DATE OF SERVICE: 02/17/17 SEX: F MEDICAL RECORD: [id number] DATE OF : [birth year] LOCATION:D. D.212 AGE OF PATIENT: 71 ADMISSION DATE: 02/19/17 REFERRING PHYSICIAN: INTERPRETING PHYSICIAN: MAE FERREIRA MD ECHOCARDIOGRAM REPORT ECHO CHARGES 4 ECHO COMPLETE CLINICAL DIAGNOSIS: NEW ONSET CHF ECHOCARDIOGRAPHIC MEASUREMENTS (adult normal given) AC root (d.<3.7cm) 3.4 cm LV Septum d (<1.2 cm> 1.3 cm Valve Excursion 1.6 cm LV Septum (systole) 1.9 cm Left Atria (s.<4.0cm> 3.0 cm LVPW d(<1.2cm) 1.3 cm RV (d.<2.3cm) 2.6 cm LVPW (sytole) 1.9 cm LV diastole(<5.6CM) 6.7 cm MV E-F(>70mm/sec) cm LV systole 4.3 cm LVOT Diameter 1.8 cm MV exc.(>10mm) cm Est.ejection fraction (50-75%) % Pericardial Effusion N DOPPLER: LVIT cm/sec A 117 cm/sec E 82.0 cm/sec LA cm/sec RVSP 58.0 mmHg LVOT 96.0 cm/sec AOP1/2T m/s Asc. Ao 184 cm/sec RVOT 71.0 cm/sec RA cm/sec PA 102 cm/sec AV Gradient Peak 14.0 mmHg AV Mean 5.8 mmHg AV Area 1.4 cm MV Gradient Peak 6.9 mmHg MV Mean 2.5 mmHg MV Area cm COMMENTS: Marine Superintendent: Juanita JORDAN Unit Receptionist: Thad Samano TAPE# PACS DATE OF SERVICE: 02/17/2017 FINDINGS: 1. Left ventricular chamber size is dilated. Left ventricular systolic function is markedly reduced, overall ejection fraction 25%. 2. Left atrium, right atrium, and right ventricle chamber sizes are within normal limits. 3. Valvular structures have normal structure and motion. 4. Doppler interrogation reveals moderate mitral regurgitation, mild tricuspid regurgitation, no other valvular insufficiency or stenosis, but pulmonary ECHOCARDIOGRAM REPORT [id number] SABIHA POP systolic pressure is elevated estimated at 58 mmHg. 5. No evidence of pericardial effusion or left ventricular thrombus. TRANSINT:[id number] Voice Confirmation ID: [id number] DOCUMENT ID: [id number] MAE FERREIRA MD at 1647 CC: [id number] DICTATION DATE: 02/17/17 160 SUPERVISOR COAL HANDLING: 02/17/17 2258 DIS IN 02/21/17 [place] [id number] [place] [id number]
== END 2017-02-21 12:26 | disposition home or self-care (01) | DRG 247 ==
LOC: D.ER 07:30 → D.M2 09:58
PROVIDERS: Emergency Medicine; ADMIT Family Medicine
PROC: 027034Z Dilation of Coronary Artery, One Artery with Drug-eluting Intraluminal Device, Percutaneous Approach (ICD-10-PCS; principal; 2017-02-19)
PROC: B240ZZ3 Ultrasonography of Single Coronary Artery, Intravascular (ICD-10-PCS; 2017-02-19)
PROC: 4A023N7 Measurement of Cardiac Sampling and Pressure, Left Heart, Percutaneous Approach (ICD-10-PCS; 2017-02-19)
PROC: B2111ZZ Fluoroscopy of Multiple Coronary Arteries using Low Osmolar Contrast (ICD-10-PCS; 2017-02-19)
PROC: B2151ZZ Fluoroscopy of Left Heart using Low Osmolar Contrast (ICD-10-PCS; 2017-02-19)
DX: I25.119 Atherosclerotic heart disease of native coronary artery with unspecified angina pectoris (principal); I50.22 Chronic systolic (congestive) heart failure; Z95.5 Presence of coronary angioplasty implant and graft; I11.0 Hypertensive heart disease with heart failure; E78.5 Hyperlipidemia, unspecified; E11.42 Type 2 diabetes mellitus with diabetic polyneuropathy; E66.01 Morbid (severe) obesity due to excess calories; I42.9 Cardiomyopathy, unspecified; E87.6 Hypokalemia; E83.42 Hypomagnesemia

== ENCOUNTER 2017-04-18 03:36 | Inpatient (IN) | payer MEDICARE ==
[~2017-04-18] VITALS: Ht 172.7 cm; Wt 109.8 kg
[~2017-04-18 03:36] MED LIST changes: +BUMEX2 MG PO; +K-DUR20 MEQ PO; +PLAVIX75 MG PO; +VITAMIN D31000 UNI2 PO
[2017-04-18 04:17] LABS: BASOPHILS 0.2 % (0-2); HEMATOCRIT 34.3 % (36.0-48.0); HEMOGLOBIN 11.6 g/dL (12-16); IMMATURE GRANULOCYTES 0.4 % (0-5); LYMPHOCYTES 19.8 % (15-50); MCH 32.7 pg (26.0-34.0); MCHC 33.8 g/dL (31.0-37.0); MCV 96.6 fL (80.0-100.0); MEAN PLATELET VOLUME 10.1 fL (7.4-10.4); MONOCYTES 5.7 % (2-11); NEUTROPHILS 70.9 % (40-80); PLATELET COUNT 234 10x3/uL (130-400); RBC 3.55 10x6/uL (4.00-5.40); RDW 14.4 % (11.5-14.5)
[2017-04-18 04:32] LABS: ALBUMIN 3.2 g/dL (3.4-5.0); ANION GAP 14.9 mmol/L (8-16); BILIRUBIN - TOTAL 0.35 mg/dL (0.2-1.3); CALCIUM 9.2 mg/dL (8.5-10.1); CARBON DIOXIDE 25.3 mmol/L (21.0-32.0); POTASSIUM - SERUM 4.2 mmol/L (3.5-5.1)
[2017-04-18 04:43] LABS: MAGNESIUM - SERUM 1.5 mg/dL (1.8-2.4)
--- NOTE | 2017-04-18 07:45 | NUR ---
PT AOX4 RESP EVEN AND NONLABORED PT DENIES NEEDS AT THIS TIME IV TO RIGHT ARM PATENT AND INTACT AT THIS TIME SRX2 BED AT LOWEST SETTING AT THIS TIME CALL LIGHT WITHIN REACH WILL CONTINUE TO MONITOR
--- NOTE | 2017-04-18 08:17 | NUR ---
PT AOX4 RESP EVEN AND NONLABORED PT DENIES NEEDS AT THIS TIME IV TO RIGHT FOREARM PATENT AND INTACT SRX2 BED AT LOWEST SETTING CALL LIGHT WITHIN REACH WILL CONTINUE TO MONITOR
[2017-04-18 08:20] VITALS: BP 112/67; BMI 36.8
[2017-04-18 08:36] VITALS: BP 150/71
--- NOTE | 2017-04-18 11:04 | NUR ---
Patient Name: SABIHA POP Admission Status: ER Accout number: [id number] Admission Date: 04-18-2017 : 1945 Admission Diagnosis: Attending: JULIO CHAMBERS Current LOS: 1 Anticipated DC Date: 04-22-2017 Planned Disposition: Home Primary Insurance: [facility] Discharge Planning Comments: CM MET WITH PATIENT REGARDING D/C NEEDS AND PLANS. PATIENT STATED SHE NOW LIVES WITH HER BROTHER HERE IN [place]. PATIENT HAS A RAMP TO ENTER HOME AND NO STAIRS INSIDE. PATIENT STATED SHE IS INDEPENDENT WITH HER CARE AND HAS A CANE, WHEELCHAIR,SHOWER CHAIR, BS COMMODE, AND GLUCOMETER AT HOME. PATIENT STATED HER PCP IS DR. CHAMBERS AND PHARMACY IS [facility]. PATIENT IS REFUSING HOME HEALTH AT THIS TIME. CM WILL CONTINUE TO FOLLOW PATIENT WITH D/C NEEDS AND PLANS. PCP DR. REYES FAGAN [facility] [phone] CHRIS NOLAN (BROTHER) [phone] Digital Advertising Specialist: Celena Tate Is the patient Alert and Oriented? Yes 0 * How many steps to enter\exit or inside your home? RAMP 0 * PCP DR. CHAMBERS 0 * Pharmacy [facility] 0 * Preadmission Environment Home with Family 0 * ADLs Independent 0 * Equipment Bedside Commode Cane Glucometer Shower Chair Wheelchair 0 * List name and contact numbers for known caregivers / representatives who currently or will assist patient after discharge: CHRIS NOLAN (BROTHER) [phone] 0 * Community resources currently utilized None 0 * Additional services required to return to the preadmission environment? Yes 0 * Can the patient safely return to the preadmission environment? Yes 0 * Has this patient been hospitalized within the prior 30 days at any hospital? No 0 Grand Total: 0
[2017-04-18 12:14] VITALS: BP 144/59
[2017-04-18 13:00] LABS: ANION GAP 15.4 mmol/L (8-16); CALCIUM 8.9 mg/dL (8.5-10.1); CARBON DIOXIDE 27.2 mmol/L (21.0-32.0); CREATININE - SERUM 1.1 mg/dL (0.6-1.3); MAGNESIUM - SERUM 1.6 mg/dL (1.8-2.4); POTASSIUM - SERUM 3.6 mmol/L (3.5-5.1)
[2017-04-18 13:08] VITALS: Ht 172.7 cm; Wt 109.8 kg
[2017-04-18 15:56] VITALS: BP 144/57
--- NOTE | 2017-04-18 19:00 | NUR ---
REPORT RECEIVED AND CARE OF PT ASSUMED. PT SITTING UP IN CHAIR WATCHING TV. IV IN RIGHT FA SALINE LOCKED. TELEMETRY IN PLACE AND PT READING 90 SR AT THIS ASSESSMENT. WILL MONITOR FOR NEEDS.
--- NOTE | 2017-04-18 19:50 | NUR ---
IV OCCLUDED...REMOVED AND PLACED DRESSING.
--- NOTE | 2017-04-18 19:55 | NUR ---
CALLED DR AVERY PER PT REQUEST FOR TYLENOL FOR HEADACHE. ORDER RECEIVED FOR TYLENOL 650 PO Q4 PRN HEADACHE.
[2017-04-18 20:00] VITALS: BP 166/77
--- NOTE | 2017-04-18 20:50 | NUR ---
HS MEDICATIONS GIVEN TO INCLUDE TYLENOL 650 MG PO PER PRN ORDER, PER REQUEST FOR HEADACHE AT LEVEL 5/10. WILL MONITOR FOR EFFECTIVENESS.
--- NOTE | 2017-04-18 21:15 | NUR ---
ATTEMPTED TO RE-SITE IV X2 WITHOUT SUCCESS. WILL LEAVE OUT FOR NOW PT HAS NO IV MEDS DUE UNTIL AM.
--- NOTE | 2017-04-18 21:26 | NUR ---
HS SNACK OF YULIA CRACKERS AND SKIM MILK GIVEN. WILL CONTINUE TO MONITOR FOR NEEDS.
[2017-04-19] VITALS: BP 127/51
[2017-04-19 04:00] VITALS: BP 137/54
--- NOTE | 2017-04-19 06:01 | NUR ---
FSBS 230 THIS AM CHECK REQUIRING COVERAGE WITH 8 UNITS OF HUMALOG PER SLIDING SCALE.
--- NOTE | 2017-04-19 06:29 | NUR ---
RE-STARTED IV TO RIGHT AC USING 20 GUAGE CATHETER IN ONE STICK. COLLECTED BLOOD SAMPLE FOR AM LABS FOR SLOTTER OPERATOR AT SAME TIME. SALINE LOCKED.
[2017-04-19 06:54] LABS: BASOPHILS 0.8 % (0-2); EOSINOPHILS 4.5 % (0-7); HEMATOCRIT 34.8 % (36.0-48.0); HEMOGLOBIN 11.8 g/dL (12-16); IMMATURE GRANULOCYTES 0.2 % (0-5); LYMPHOCYTES 26.2 % (15-50); MCH 33.1 pg (26.0-34.0); MCHC 33.9 g/dL (31.0-37.0); MCV 97.5 fL (80.0-100.0); MEAN PLATELET VOLUME 10.7 fL (7.4-10.4); MONOCYTES 8.5 % (2-11); NEUTROPHILS 59.8 % (40-80); PLATELET COUNT 248 10x3/uL (130-400); RBC 3.57 10x6/uL (4.00-5.40); RDW 14.5 % (11.5-14.5)
[2017-04-19 06:55] LABS: WBC 6.3 10x3/uL (4.8-10.8)
--- NOTE | 2017-04-19 07:00 | NUR ---
PT REC'D FROM NATY PASTRANA. SITTING UP IN CHAIR AT BEDSIDE. BREAKFAST TRAY IN ROOM. STATES SHE FEELS LIKE HER SUGAR IS LOW. TOLD HER THAT IF SHE STILL FEELS LIKE THIS AFTER EATING BREAKFAST WE WOULD CHECK IT AGAIN. TELEMETRY IN PLACE. REGULAR HEART RATE AND RHYTHM. BILAT UPPER LUNG SOUNDS CLEAR, BUT DIMINISHED BILAT. PIV TO R AC FREE OF REDNESS AND SWELLING. BED LOW, CALL LIGHT IN REACH, DENIES NEEDS. CPOC.
[2017-04-19 07:32] LABS: CALC OSMOLALITY 289 mosm/kg (275-300); CALCIUM 9.2 mg/dL (8.5-10.1); CARBON DIOXIDE 28.6 mmol/L (21.0-32.0); CHLORIDE - SERUM 102 mmol/L (98-107); CKMB 1.8 U/L (0.0-3.6); GLUCOSE 220 mg/dL (74-106); MAGNESIUM - SERUM 1.7 mg/dL (1.8-2.4); PHOSPHOROUS 4.9 mg/dL (2.5-4.9); POTASSIUM - SERUM 4.4 mmol/L (3.5-5.1); PRO BNP 1061 pg/mL (0-125); SODIUM 141 mmol/L (136-145); TROPONIN-I < 0.017 ng/mL (0.000-0.060); UREA NITROGEN 17 mg/dL (7-18); eGFR NON AFRICAN AMERICAN 58 mL/min (90-120)
--- NOTE | 2017-04-19 09:15 | NUR ---
MORNING MEDS PASSED AT THIS TIME. TOLERATED WELL. FRESH WATER PROVIDED. BED LOW, CALL LIGHT IN REACH, DENIES NEEDS. CPOC.
[2017-04-19 10:10] VITALS: BP 139/53
[2017-04-19 13:39] VITALS: BP 153/57
[2017-04-19 16:51] VITALS: BP 143/60
--- NOTE | 2017-04-19 17:39 | NUR ---
PT RESTING IN BED HAVING DINNER. SCHEDULED MEDS PASSED. CURRENT FSBS 210. 4 UNITS OF INSULIN ADMINISTERED PER SS. BED LOW, CALL LIGHT IN REACH, DENIES NEEDS. CPOC.
--- NOTE | 2017-04-19 18:00 | NUR ---
PATIENT IN BED WITH EYES CLOSED RESTING QUIETLY. IV INTACT. CALL LIGHT WITHIN REACH.
--- NOTE | 2017-04-19 19:00 | NUR ---
REPORT RECEIVED AND CARE OF PT ASSUMED. PT SITTING UP IN CHAIR WATCHING TV. IV IN RIGHT AC SALINE LOCKED. TELEMETRY IN PLACE AND READING 87 SR W/ BBB + OCC PAC'S AT THIS ASSESSMENT. WILL MONITOR CLOSELY FOR NEEDS. CALL LIGHT WITHIN REACH.
[2017-04-19 20:00] VITALS: BP 137/52
--- NOTE | 2017-04-19 20:28 | NUR ---
HS MEDICATIONS GIVEN TO INCLUDE BENADRYL CREAM PER PRN ORDER. FSBS 268 THIS CHECK REQUIRING COVERAGE WITH 6 UNITS OF INSULIN PER SLIDING SCALE. WILL CONTINUE TO MONITOR FOR NEEDS.
--- NOTE | 2017-04-19 20:30 | NUR ---
HS SNACK OF YULIA CRACKERS AND SKIM MILK PROVIDED TO PT PER DIET ORDER.
[2017-04-20] VITALS: BP 108/77
[2017-04-20 04:00] VITALS: BP 122/61
[2017-04-20 05:10] LABS: BASOPHILS 0.6 % (0-2); EOSINOPHILS 4.5 % (0-7); HEMATOCRIT 35.1 % (36.0-48.0); HEMOGLOBIN 11.7 g/dL (12-16); IMMATURE GRANULOCYTES 0.3 % (0-5); LYMPHOCYTES 25.4 % (15-50); MCH 32.6 pg (26.0-34.0); MCHC 33.3 g/dL (31.0-37.0); MCV 97.8 fL (80.0-100.0); MEAN PLATELET VOLUME 10.6 fL (7.4-10.4); MONOCYTES 8.3 % (2-11); NEUTROPHILS 60.9 % (40-80); PLATELET COUNT 254 10x3/uL (130-400); RBC 3.59 10x6/uL (4.00-5.40); RDW 14.4 % (11.5-14.5); WBC 6.3 10x3/uL (4.8-10.8)
[2017-04-20 05:41] LABS: ALBUMIN 3.3 g/dL (3.4-5.0); BILIRUBIN - TOTAL 0.48 mg/dL (0.2-1.3); CALCIUM 9.2 mg/dL (8.5-10.1); CARBON DIOXIDE 30.7 mmol/L (21.0-32.0); CREATININE - SERUM 1.1 mg/dL (0.6-1.3); PROTEIN - SERUM 7.1 g/dL (6.4-8.2)
[2017-04-20 05:43] LABS: POTASSIUM - SERUM 3.7 mmol/L (3.5-5.1)
--- NOTE | 2017-04-20 07:00 | NUR ---
PATIENT IN BED WITH NO COMPLAINTS AT THIS TIME. IV INTACT. CALL LIGHT WITHIN REACH.
--- NOTE | 2017-04-20 07:26 | NUR ---
PT IS SITTING UP IN CHAIR, STATED HAS BEEN UP SINCE 4 AND STATED HER USAUL TIME, NO SIGNS OF DISTRESS, NO HEADACHE AT THIS TIME, NO OTHER NEEDS VOICED, WILL CONTINUE WITH PLAN OF CARE, PT STATED MAY BE D/C TODAY
[2017-04-20 08:31] VITALS: BP 123/47
[2017-04-20] MEDS ORDERED: LASIX40 MG PO (09:46)
--- NOTE | 2017-04-20 11:29 | NUR ---
RECIEVED DC ORDERS FOR PT, WENT OVER DC INSTRUCTIONS AND ENCOURAGED PT TO CALL WITH ANY QUESTIONS OR CONCERNS AND TO MAKE FOLLOW UP APPT WITH SAMI
--- NOTE | 2017-04-29 07:59 | HP ---
PATIENT: SABIHA POP MEDICAL RECORD: [id number] ACCOUNT: [id number] LOCATION:D.MS [id number] : 43 ADMISSION DATE: 04/18/17 HISTORY AND PHYSICAL EXAMINATION HISTORY OF PRESENT ILLNESS: A 71-year-old female presented to the Emergency Room with progressive shortness of breath. She had discontinued her water pill 2 days ago because she thought she was allergic to it. Has had worsening shortness of breath since that time. Has significant orthopnea. She had a stent placed in January. She had had followup with her music orchestrator, Dr. Samano. PAST MEDICAL HISTORY: Significant for CAD, CHF, diabetes, and hypertension. ALLERGIES: REPORTED CORTICOSTEROIDS. MEDICATIONS: Listed as metformin, Plavix, quinapril, carvedilol, pantoprazole, gemfibrozil, vitamin D, glipizide, doxazosin, Bumex. FAMILY HISTORY: Noncontributory. REVIEW OF SYSTEMS: GENERAL: No known change in weight. HEENT: No cephalgia, visual changes, tinnitus, epistaxis, or dysphagia. CARDIOVASCULAR: Complained of substernal midline chest pain, pressure, heaviness. PULMONARY: Denies hemoptysis. Denies night sweats. Admits shortness of breath, orthopnea, has to sit up to sleep. GASTROINTESTINAL: Denies hematemesis, hematochezia, or melena. GENITOURINARY: Denies dysuria. MUSCULOSKELETAL: No acute changes. Does have lower extremity edema. NEUROLOGIC: No focal deficits. SKIN: Warm and dry. No rash. PHYSICAL EXAMINATION: VITAL SIGNS: Temperature 97.5, heart rate 100, respirations 22, blood pressure 155/71, O2 sats 95%. GENERAL: The patient is alert, oriented, in mild distress. HEENT: Head: Normocephalic, atraumatic. Eyes: Pupils equal, round, reactive to light and accommodation. Extraocular muscles intact. Conjunctivae not injected. Ears: Canals patent. TMs are intact. Nose: Nares patent without drainage. Throat: No erythema. No exudates. NECK: Supple. No lymphadenopathy. No JVD. HEART: Regular rate and rhythm. No S3 or S4. No rub. LUNGS: Diminished breath sounds at the bases, anxious. ABDOMEN: Soft, nontender. Bowel sounds in all 4 quadrants. EXTREMITIES: Present times 4. Mild edema. NEUROLOGIC: No focal deficits. LABORATORY DATA: EKG shows sinus rhythm, rate of 100, frequent PVCs. CBC: White count 9000, hemoglobin 11.6, hematocrit 34.3, platelets 234. Sodium 139, potassium 4.2, chloride 103, bicarbonate 25.3, BUN 14, creatinine 1.0, glucose 226, lactic acid 2.6, magnesium 1.5. Of note, the patient was given 2 amps of magnesium reportedly in the ER. CK 72. ProBNP is 1800. Chest x-ray results pending from the Emergency Room. HISTORY AND PHYSICAL [id number] SABIHA POP ASSESSMENT AND PLAN: 1. Congestive heart failure exacerbation. The patient admitted. We will diurese, electrolyte protocol. We will recheck electrolytes at 1300 today. 2. Chest pain, abnormal EKG, left bundle-branch block, frequent PVCs. We will consult her music orchestrator, Dr. Samano. Cardiac meds restarted. Accurate I's and O's. Telemetry. Cycle enzymes. 3. Diabetes mellitus. We will hold sulfonylureas and metformin. Placed on sliding scale insulin, intermediate resistance. Supportive care. TRANSINT:[id number] Voice Confirmation ID: [id number] DOCUMENT ID: [id number] RICHIE PAYTON DO at 0759 CC: [id number] DICTATION DATE: 04/18/17 0748 MECHANICAL PROJECT ENGINEER: 04/18/17 0839 DIS IN 04/20/17 [facility] [address] [place] [address]
== END 2017-04-20 12:32 | disposition home or self-care (01) | DRG 293 ==
LOC: D.ER 03:36 → D.MS 06:35
PROVIDERS: Emergency Medicine; Family Medicine; ADMIT Family Medicine
DX: I11.0 Hypertensive heart disease with heart failure (principal); I50.21 Acute systolic (congestive) heart failure; E11.9 Type 2 diabetes mellitus without complications; I44.7 Left bundle-branch block, unspecified; I25.10 Atherosclerotic heart disease of native coronary artery without angina pectoris; Z91.14 Patient's other noncompliance with medication regimen

== ENCOUNTER → 2017-06-19 10:02 | Outpatient (CLI) | payer MEDICARE ==
[2017-04-18 13:08] VITALS: BMI 36.8
[~2017-06-19 10:02] MED LIST changes: +LASIX40 MG PO
== END | disposition home or self-care (01) ==
LOC: D.RAD 10:02
DX: M54.5 Low back pain (principal)

== ENCOUNTER 2018-03-01 08:12 | Observation (INO) | payer MEDICARE ==
[~2018-03-01] VITALS: Ht 172.7 cm; Wt 108.9 kg
--- NOTE | ~2018-03-01 | HEMODYNAMI ---
PATIENT:SABIHA POP MEDICAL RECORD: [id number] : 41 LOC[facility] [place] [address] [id number] ADMISSION DATE: 03/01/18 Generatedon:03/03/201815:02 Patient name: SABIHA POP Patient #: [id number] SSN: : Date of study: 03/03/2018 Page: Of Hemodynamic Procedure Report Patient Data Patient Demographics Procedure consent was obtained First Name: SABIHA Gender: Female Last Name: DONN : 1945 [facility] Initial: ALLAN Age: 72 year(s) Patient #: [id number] Race: Additional ID: [id number] Contact details Address: [address] [place] [address] State: [place] City: [place] Zip code: [address] Past Medical History History of disease Date Diagnosis Comments CAD Allergies Allergen Reaction Date Comments Reported Other allergy 01/24/2015 steroid shots Other allergy 02/19/2017 Steriodal muscle blockers, methylprednisolone Other allergy 03/03/2018 methylprednisolone, steriodal muscle blockers Admission Admission Data Admission Date: 03/01/2018 Admission Time: 9:48 Room #: D.2128 Procedure Procedure Types Cath Procedure Diagnostic Procedure [facility] w/Coronaries Sedation Charges Moderate Sedation up to 15 minutes PCI Procedure Coronary Stent Coronary Stent Initial Procedure Description Procedure Date Procedure Date: 03/03/2018 Procedure Start Time: 14:41 Procedure End Time: 15:00 Procedure Staff Name Function Zaid Madrigal MD Performing Physician Amanda Mendes RT Monitor Ofelia Hays RT Scrub Kiara Kowalski RN Nurse Hansa Liriano RN Nurse Avelino Lewis RT Health And Wellness Coordinator Genaro Coyle RN Nurse Procedure Data Cath Procedure Fluoroscopy Diagnostic fluoroscopy Total fluoroscopy Time: 5.5 time: 5.5 min min Diagnostic fluoroscopy Total fluoroscopy dose: dose: 1043 mGy 1043 mGy Contrast Material Contrast Material Type Amount (ml) Isovue 300 103 Entry Location Entry Primary Successful Side Size Upsize Upsize Entry Closure Hernández ccessful Closure Location (Fr) 1 (Fr) 2 (Fr) Remarks Device Remarks Radial Right 6 Fr Mechanical artery Short Compression Estimated blood loss: 5 ml Diagnostic catheters Device Type Used For End Catheter Placement DIAGNOSTIC [place] 110cm 5 Multi-vessel Fr catheter ([id number]) Angiography Procedure Complications No complications Procedure Medications Medication Administration Route Dosage 0.9% NaCl I.V. 100 ml/hr Oxygen etCO2 Nasal cannula 2 l/min Heparin Flush Bag added to field 2 bags (1000units/500ml NS) Lidocaine 2% added to field 20 Radial Cocktail added to field 1 syringe (Verapomil 2mg/Nitro 400mcg/Heparin 1500units) Versed I.V. 1 mg Fentanyl I.V. 50 mcg Radial Cocktail I.A. 1 syringe (Verapomil 2mg/Nitro 400mcg/Heparin 1500units) Heparin Bolus I.V. 4000 units Versed I.V. 1 mg Fentanyl I.V. 50 mcg Hemodynamics Rest Heart Rate: 90 (bpm) Pressure Samples Time Site Value (mmHg) Purpose Heart Use Rate(bpm) 14:44 LV 168/47,77 Snapshot 87 14:45 AO 105/65(81) Pullback 86 14:45 LV 113/13,14 Pullback 86 Gradients Valve Time Site 1 Site 2 Mean SEP/DFP Peak To Heart Use (mmHg) (sec/min) Peak Rate (mmHg) (bpm) Aortic 14:45 LV AO 9 16 8 86 113/13,14 105/65(81) Calculations Valve P-P Mean Valve Index Valve Source Name Gradient Area Flow (cm2) Aortic 8 9 8 9 Snapshots Pre Cath Intra NCS Post Cath Vital Signs Time Heart Resp SPO2 etCO2 NIBP (mmHg) Rhythm Pain Sedation Rate (ipm) (%) (mmHg) Status Level (bpm) 14:20:56 84 26 93 38 162/79(114) NSR 0 (11) 10(A) , No pain 14:26:05 84 23 94 38 165/80(117) NSR 0 (11) 10(A) , No pain 14:31:15 80 20 93 37 168/71(122) NSR 0 (11) 10(A) , No pain 14:36:26 79 26 94 36.9 154/68(100) NSR 0 (11) 10(A) , No pain 14:41:33 81 22 94 36.9 162/72(115) NSR 0 (11) 9(A) , No pain 14:46:40 83 21 94 31.6 144/67(90) NSR 0 (11) 9(A) , No pain 14:51:42 89 27 92 29.3 157/77(103) NSR 0 (11) 9(A) , No pain 14:56:49 85 17 96 38.3 163/85(124) NSR 0 (11) 10(A) , No pain Medications Time Medication Route Dose Verified Delivered Reason Not es Effectiveness by by 14:23:09 0.9% NaCl I.V. 100 Genaro Genaro Per physician ml/hr Jonna Coyle RN RN 14:23:23 Oxygen etCO2 2 l/min Genaro Genaro Per physician Nasal Jonna Coyle cannula RN RN 14:23:35 Heparin Flush added 2 bags Genaro Genaro used for Bag to Lorigan Lorigan procedure (1000units/500ml field NATY RN NS) 14:23:45 Lidocaine 2% added 20ml Genaro Genaro for local to vial Lorigan Lorigan anesthetic field NATY ALFONSO 14:23:55 Radial Cocktail added 1 Genaro Genaro used for (Verapomil to syringe Lorigan Lorigan procedure 2mg/Nitro field NATY ALFONSO 400mcg/Heparin 1500units) 14:41:39 Versed I.V. 1 mg Genaro Genaro for sedation Jonna Coyle RN RN 14:41:50 Fentanyl I.V. 50 mcg Genaro Genaro for sedation Jonna Coyle RN RN 14:43:22 Radial Cocktail I.A. 1 Genaro Zaid for (Verapomil syringe Lorigan Rohan vasodilation 2mg/Nitro NATY HELTON 400mcg/Heparin 1500units) 14:49:24 Heparin Bolus I.V. 4000 Genaro Hansa for units Jonna Liriano anticoagulation RN RN 14:55:46 Versed I.V. 1 mg Genaro Hansa for sedation Jonna Liriano RN RN 14:55:50 Fentanyl I.V. 50 mcg Genaro Hansa for sedation Jonna Liriano RN highway technician Log Time Note 13:42:50 Diagnostic Cath Status : Elective 13:43:25 Avelino Lewis RT(R) sent for patient. Start room use. 13:43:25 Time tracking: Regular hours (M-F 7:00 - 5:00) 13:43:32 Plan of Care:Hemodynamics will remain stable., Cardiac rhythm will remain stable., Comfort level will be maintained., Respiratory function will remain adequate., Patient/ family verbilizes understanding of procedure., Procedure tolerated without complication., Recovers from procedure without complications.. 14:09:40 Patient received from PCU to CCL 1 Alert and oriented. Tansferred to table in Supine position. 14:09:41 Warm blankets applied, and deysi hugger turned on for patient comfort. 14:09:41 Correct patient and procedure confirmed by team. 14:09:42 Signed procedure consent form obtained from patient. 14:09:44 ECG and BP/O2 sat monitors applied to patient. 14:17:01 H&P Date Dictated: 03/01/2018 Within 30 days and on chart.. 14:17:06 Pre-procedure instructions explained to patient. 14:17:06 Pre-op teaching completed and patient verbalized understanding. 14:17:13 Family in waiting room. 14:17:15 Patient NPO since Breakfast. 14:18:12 Patient allergic to Other allergymethylprednisolone, steriodal muscle blockers 14:19:33 Vital chart was started 14:19:34 Baseline sample Acquired. 14:19:44 Rhythm: sinus rhythm 14:19:46 Full Disclosure recording started 14:19:57 Is the patient allergic to Iodine/contrast media? No. 14:19:59 Is patient on blood thinner?Yes 14:20:02 ACC The patient was administered the following blood thiners within the last 24 hours: ACCPlavix 14:20:04 Patient diabetic? Yes. 14:20:04 If diabetic: On Metformin? Yes 14:20:32 If on Metformin: Last Dose? 02/28/2018 14:20:37 If on Metformin: Last Dose? 02/28/2018 14:20:40 Previous problem with sedation/anesthesia? No ? 14:20:43 Snore? Yes 14:20:44 Sleep apnea? No 14:20:45 Deviated septum? No 14:20:45 Opens mouth fully? Yes 14:20:46 Sticks out tongue? Yes 14:20:47 Airway obstruction? No ? 14:20:51 Dentures? No ? 14:20:57 Pre procedure: right dorsailis pedis pulse 2+ Normal; easily identifiable; not easily obliterated 14:20:58 Modified Olu's test Ulnar < 7 seconds 14:21:00 Patient pain scale 0/10 ?. 14:23:09 0.9% NaCl 100 ml/hr I.V. was administered by Genaro Coyle RN; Per physician; 14:23:23 Oxygen 2 l/min etCO2 Nasal cannula was administered by Genaro Coyle RN; Per physician; 14:23:35 Heparin Flush Bag (1000units/500ml NS) 2 bags added to field was administered by Genaro Coyle RN; used for procedure; 14:23:45 Lidocaine 2% 20ml vial added to field was administered by Genaro Coyle RN; for local anesthetic; 14:23:55 Radial Cocktail (Verapomil 2mg/Nitro 400mcg/Heparin 1500units) 1 syringe added to field was administered by Genaro Coyle RN; used for procedure; 14:24:17 IV patent on arrival in left forearm with 0.9% NaCl at [facility]. 14:24:20 Lab results completed and on chart. 14:24:32 Right Radial & Right Groin area was prepped with chlora-prep and draped in sterile fashion 14:24:33 Alarms reviewed by R. N. 14:24:34 Sharps counted by scrub and verified by R.N. 14:24:45 Physician arrived 14:24:46 --------ALL STOP TIME OUT------ 14:24:46 Final Timeout: patient, procedure, and site verified with staff and physician. All members of the team are in agreement. 14:24:49 Right Radial & Right Groin site verified by team. 14:24:52 Physical assessment completed. ASA score P 2 - A patient with mild systemic disease as per Zaid Madrigal MD. 14:24:55 Sedation plan: IV Moderate Sedation Medication:Versed, Fentanyl 14:26:44 Use device set Radial Dx or PCI 14:26:45 ACIST Syringe (81104) opened to sterile field. 14:26:46 Medline Cath Pack ([id number]) opened to sterile field. 14:26:46 Bag Decanter (2002) opened to sterile field. 14:26:46 DIAGNOSTIC WIRE .035 260cm J wire (229272) opened to sterile field. 14:26:47 ACIST Hand Control (05018) opened to sterile field. 14:26:47 ACIST Manifold (89124) opened to sterile field. 14:26:48 Tegaderm 4 x 4 (1626W) opened to sterile field. 14:26:51 MBrace Wrist Support ([id number]) opened to sterile field. 14:26:52 SHEATH 6Fr Prelude Radial ([id number]) opened to sterile field. 14:31:23 Zero performed for pressure channel P1 14:31:28 Zero performed for pressure channel P1 14:41:39 Versed 1 mg I.V. was administered by Genaro Coyle RN; for sedation; 14:41:44 Procedure started. 14:41:50 Fentanyl 50 mcg I.V. was administered by Genaro Coyle RN; for sedation; 14:41:50 Local anesthetic to right radial artery with Lidocaine 2% by Zaid Madrigal MD.INITIAL ACCESS ONLY 14:43:06 A 6 Fr Short sheath was inserted into the Right Radial artery 14:43:22 Radial Cocktail (Verapomil 2mg/Nitro 400mcg/Heparin 1500units) 1 syringe I.A. was administered by Zaid Madrigal MD; for vasodilation; 14:43:23 A DIAGNOSTIC [place] 110cm 5 Fr catheter (296642) was advanced over the wire and used for Multi-vessel Angiography. 14:44:40 LV hemodynamics recorded. 14:44:41 LV gram done using ARAYA 14:44:43 Injector settings: Ml/sec: 5, Volume: 15, 14:44:55 EF : 30 % 14:45:08 LCA angiography performed. 14:45:11 Injector settings: Ml/sec: 3, Volume: 6, 14:47:20 RCA angiography performed. 14:47:24 Injector settings: Ml/sec: 3, Volume: 6, 14:47:40 Catheter removed. 14:47:50 INFLATOR Merit BasixCompak (GY2989) opened to sterile field. 14:48:12 WHISPER 300cm guide wire ([id number]) opened to sterile field. 14:48:58 GUIDE 6FR EBU 3.5 catheter ([id number]) opened to sterile field. 14:49:23 Proceeding to intervention. 14:49:24 Heparin Bolus 4000 units I.V. was administered by Hansa Liriano RN; for anticoagulation; 14:49:31 6 Fr ebu 3.5 guide catheter was inserted over the wire 14:49:36 whisper wire advanced. 14:49:40 Wire advanced across lesion. 14:55:46 Versed 1 mg I.V. was administered by Hansa Liriano RN; for sedation; 14:55:50 Fentanyl 50 mcg I.V. was administered by Hansa Liriano RN; for sedation; 14:57:14 Place stent Inflation Number: 1 A INTEGRITY OTW 3.5 X 15 stent ([id number]) was prepped and advanced across the Prox CX. The stent was deployed at 14 FITO for 0:10 (min:sec). 14:58:09 Stent catheter was removed intact over wire. 14:58:10 Wire removed. 14:58:10 Guide catheter removed. 14:58:13 TR BAND Standard ([id number]) opened to sterile field. 14:58:43 Sheath removed intact; hemostasis achieved with Mechanical Compression to the Right Radial artery. 14:58:54 Procedure ended.(Physican Out) 14:59:18 Fluoroscopy time 05.50 minutes. 14:59:23 TR band inflated with 12cc of air. 14:59:24 Flurop Dose total: 1043 14:59:24 Fluoroscopy dose: 1043 mGy 14:59:28 Contrast amount:Isovue 300 103ml. 14:59:39 Sharps counted by scrub and verified by R.N. 14:59:41 Insertion/operative site no bleeding no hematoma. 14:59:50 Post right radial artery:stable 14:59:51 Post Procedure Pulses reassessed and unchanged 14:59:54 Post procedure rhythm: unchanged. 14:59:57 Estimated blood loss: 5 ml 14:59:59 Post procedure instruction explained to patient.Patient verbalizes understanding. 14:59:59 Patient needs reinforcement of post procedure teaching. 15:00:16 Procedure type changed to Cath procedure, Diagnostic procedure, LHC, LHC w/Coronaries, Sedation Charges, Moderate Sedation up to 15 minutes, PCI procedure, Coronary Stent, Coronary Stent Initial 15:00:16 Procedure and supply charges have been captured, reviewed, submitted and are correct. 15:00:22 Procedure Complication : No complications 15:00:25 Vital chart was stopped 15:00:26 See physician's report for complete and final results. 15:00:29 Report given to [facility]. 15:00:37 Patient transfered to [facility] with Stretcher. 15:00:42 Procedure ended. 15:00:42 Full Disclosure recording stopped 15:00:49 ACC-PCI Only Patient was given prescriptions, or instructed by Zaid Madrigal MD to start/continue the following medications upon discharge: Plavix 15:00:52 End room use (Document Last) Intervention Summary Intervention Notes Time ActionType Lesion and Equipment Action# Pressure Duration Attributes Used 14:57:14 Place stent Prox CX INTEGRITY 1 14 00:10 OTW 3.5 X 15 stent ([id number]) Device Usage Item Name Manufacture Quantity Catalog Number Hospital Part Current M inimal Lot# / Charge Number Stock Stock Serial# Code ACIST Syringe Acist 1 49337 259746 189037 143019 2 0 (28181) Medical Systems Inc Medline Cath Cardinal 1 [id number] 592768 55372 769474 5 PSI Systems ([id number]) Bag Decanter Microtek 1 2001S 901819 12115 738262 5 (2001S) Medical Inc. DIAGNOSTIC WIRE St [place] 1 293816 385214 988511 376885 3 0 .035 260cm J wire (727323) ACIST Hand Acist 1 86766 467301 973107 393832 5 Control (78827) Medical Systems Inc ACIST Manifold Acist 1 04768 002093 870525 205155 5 (05932) Medical Systems Inc Tegaderm 4 x 4 3M 1 1626W 576321 221254 949000 5 (1626W) MBrace Wrist Advanced 1 140-0250-00 361378 50242 023659 5 Support Vascular (593607723) Dynamics SHEATH 6Fr Merit 1 [id number] 046638 402563 528779 5 Prelude Radial Medical ([id number]) DIAGNOSTIC Terumo 1 64-5530 467495 895126 727513 5 [place] 110cm 5 Fr catheter (104207) INFLATOR Merit Merit 1 WI0330 562670 854316 872934 1 5 Navegg Medical (YZ9680) WHISPER 300cm Doe 1 [id number] 394168 858705 726677 5 guide wire Vascular ([id number]) GUIDE 6FR EBU Medtronic 1 [id number] 675550 30609 642804 3 3.5 catheter ([id number]) INTEGRITY OTW Medtronic 1 [id number] 655307 145800 9 [id number] 3.5 X 15 stent ([id number]) TR BAND Terumo 1 [id number] 813432 910614 947116 4 0 Standard ([id number]) Signature Audit [place] Stage Time Signature Unsigned Intra-Procedure 03/03/2018 Amanda Mendes 3:02:05 PM RT(R) Signatures Monitor : Amanda Mendes RT Signature : Date : Time : [id number] [place] [address]
--- NOTE | ~2018-03-01 | EC ---
PATIENT:SABIHA POP DATE OF SERVICE: 03/01/18 SEX: F MEDICAL RECORD: [id number] DATE OF : 41 LOCATION:D.M2 D.212 AGE OF PATIENT: 72 ADMISSION DATE: 03/01/18 REFERRING PHYSICIAN: INTERPRETING PHYSICIAN: ALLEN LEON MD ECHOCARDIOGRAM REPORT ECHO CHARGES 4 ECHO COMPLETE Date: 03/01/18 CLINICAL DIAGNOSIS: CHF ECHOCARDIOGRAPHIC MEASUREMENTS (adult normal given) AC root (d.<3.7cm) 2.9 cm LV Septum d (<1.2 cm> 1.5 cm Valve Excursion 1.6 cm LV Septum (systole) 1.6 cm Left Atria (s.<4.0cm> 2.9 cm LVPW d(<1.2cm) 0.9 cm RV (d.<2.3cm) 2.2 cm LVPW (sytole) 1.0 cm LV diastole(<5.6CM) 6.1 cm MV E-F(>70mm/sec) cm LV systole 5.8 cm LVOT Diameter 2.0 cm MV exc.(>10mm) cm Est.ejection fraction (50-75%) % DOPPLER: LVIT cm/sec A 91 cm/sec E 76 cm/sec LA cm/sec RVSP 14.1 mmHg LVOT 107 cm/sec AOP1/2T m/s Asc. Ao 182 cm/sec RVOT 82 cm/sec RA cm/sec PA 101 cm/sec AV Gradient Peak 13.2 mmHg AV Mean 7.9 mmHg AV Area 1.7 cm MV Gradient Peak 4.3 mmHg MV Mean 2.3 mmHg MV Area cm COMMENTS: Galley Boy: Emily NEGRO Admissions Evaluator: 4 Dr. Leon TAPE# PACS Pericardial Effusion N DATE OF SERVICE: PROCEDURE: Transthoracic echocardiogram. FINDINGS: 1. The left ventricle is dilated at 6.1 cm. There are regional wall motion abnormalities. There is anterior septal akinesis. The overall ejection fraction appears to be reduced, although there is asynchronous wall motion due to a bundle branch block, but the ejection fraction appears to be in the 30% to 35% range. ECHOCARDIOGRAM REPORT [id number] SABIHA POP 2. The left atrium is normal. 3. The mitral valve has trace mitral regurgitation. 4. Tricuspid valve has trace tricuspid regurgitation. 5. The right ventricle and right atrium are otherwise normal. CONCLUSIONS: The patient has what appears to be an ischemic cardiomyopathy, ejection fraction in the 30% to 35% range. TRANSINT:[id number] Voice Confirmation ID: [id number] DOCUMENT ID: [id number] ALLEN LEON MD at 1348 CC: [id number] DICTATION DATE: 03/02/18 0758 VACUUM DRIER TENDER: 03/02/18 1201 DIS IN 03/03/18 [address] [place] [address]
--- NOTE | ~2018-03-01 | DS ---
PATIENT:SABIHA POP :41 MEDICAL RECORD: [id number] DISCHARGE SUMMARY ADMISSION DATE: 03/01/18 DISCHARGE DATE: 03/03/18 DATE OF ADMISSION: 03/01/2018 DATE OF DISCHARGE: 03/03/2018 CONDITION ON DISCHARGE: Improved. ADMITTING DIAGNOSES: Congestive heart failure, diabetes, and hypertension. DISCHARGE DIAGNOSES: Heart failure, arteriosclerotic heart disease, acute diastolic congestive heart failure, hypertension, diabetes, and hyperlipidemia. HISTORY: A 72-year-old female who presented to the Emergency Room complaining of acute shortness of breath. She had had shortness of breath, which began after midnight at 2:00 a.m., condition continued to worsen. She presented to the Emergency Room. PHYSICAL EXAMINATION: VITAL SIGNS: In the Emergency Room, the patient was afebrile. Her pulse 103, respirations 24, blood pressure 164/75, O2 sat was 95%. HEENT: Unremarkable. NECK: Supple. There is no adenopathy. LUNGS: She had decreased breath sounds in the bases. ABDOMEN: Soft, bowel sounds positive. EXTREMITIES: She had 1+ pretibial edema. LABORATORY AND DIAGNOSTIC DATA: Her EKG showed sinus rhythm, frequent PVCs. The patient's BUN is 9, and creatinine is 1. Cardiac enzymes were unremarkable. ProBNP was elevated at 3777. Chest x-ray showed cardiomegaly. HOSPITAL COURSE: The patient was admitted and initially seen by furniture repairer, Dr. Len Lynch and the patient felt like she was volume overloaded. She was started on diuresis. She did have a good diuresis. The patient had an echocardiogram. Echocardiogram revealed left atrium is normal. Mitral valve had trace regurgitation. Tricuspid had trace regurgitation. The patient had an ejection fraction 35%. On the following day, she was seen by Dr. Samano who felt the patient would benefit from a cardiac catheterization. The patient did undergo cardiac catheterization, ejection fraction was noted to be 30%. The patient did undergo stent placement in the circumflex. No residual stenosis was noted. The patient was therefore discharged. DISCHARGE INSTRUCTIONS: DISCHARGE SUMMARY REPORT [id number] SABIHA POP DISPOSITION: She was discharged home. MEDICATIONS: She will continue metformin 500 mg p.o. b.i.d., Cardura 4 mg once a day, glipizide 5 mg p.o. b.i.d., Accupril 40 mg b.i.d., Coreg 25 b.i.d., gemfibrozil 600 mg p.o. b.i.d., pravastatin 40 mg p.o. bedtime, aspirin 81 mg once a day, Plavix 75 mg once a day, K-Dur 20 mEq 1 p.o. every day, Lasix 80 mg p.o. b.i.d. p.r.n. swelling, and Lexapro 10 mg once a day. DIET: She would be on a 2200-calorie ADA diet. FOLLOWUP: She would follow up with me in 1 week. She would also follow up with Dr. Samano in 1 week. ACTIVITIES: Ad hollie. TRANSINT:[id number] Voice Confirmation ID: [id number] DOCUMENT ID: [id number] JULIO CHAMBERS MD at 0702 CC: [id number] DICTATION DATE: 03/22/18920 SKIVER HEEL TAP: 03/23/18 0449 DIS IN 03/03/18 [address] [place] [address]
--- NOTE | ~2018-03-01 | OP ---
PATIENT NAME: SABIHA POP MEDICAL RECORD: [id number] :41 LOCATION:D.M2 D.2128 ADMISSION DATE:03/01/18 SURGEON: PHIL MIRANDA MD DATE OF OPERATION: 03/03/2018 PROCEDURE: Left heart catheterization, selective coronary angiography, right radial approach. CATHETERS: Radial sheath, Ossian catheter. The procedure was well tolerated. The patient returned to guerrero, sheath removed and TR band was placed. FINDINGS: Left ventriculography in the 30-degree ARAYA view shows mildly decreased EF. Overall function 35%. This improved from previously. CORONARY ANATOMY: LEFT MAIN: Left main is free of disease. LAD: The previously placed stent is widely patent with no evidence of restenosis. CIRCUMFLEX: Large circumflex vessel, has a proximal stenosis of 80%. RIGHT CORONARY ARTERY: Previously placed stent is widely patent. 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 PLAN: Intervention momentarily. DESCRIPTION OF PROCEDURE: Using indwelling sheath, a EBU 3.5 guiding catheter provided excellent guide catheter support. A 300 cm Whisper wire was placed across the 80% stenosis in the circumflex distal portion of the vessel. Stent deployed was a 3.5 x 15 mm Integrity nondrug-eluting stent up to 14 atmospheres for 45 seconds. Final angiography showed excellent resolution of 80% stenosis, no significant residual. SHEA flow 3 throughout the procedure. Heparin was used during the case. The patient was previously on Plavix. Sheath closed with TR band. TRANSINT:[id number] Voice Confirmation ID: [id number] DOCUMENT ID: [id number] PHIL MIRANDA MD at 1305 CC: [id number] DICTATION DATE: 03/03/18 1510 DRAFTER ELECTRICAL: 03/03/18 1703 DIS IN 03/03/18 [facility] [address] [id number]
[2018-03-01 08:32] LABS: BASOPHILS 0.3 % (0-2); EOSINOPHILS 3.8 % (0-7); HEMATOCRIT 35.7 % (36.0-48.0); HEMOGLOBIN 12.1 g/dL (12-16); IMMATURE GRANULOCYTES 0.3 % (0-5); LYMPHOCYTES 23.6 % (15-50); MCHC 33.9 g/dL (31.0-37.0); MCV 94.4 fL (80.0-100.0); MEAN PLATELET VOLUME 10.3 fL (7.4-10.4); MONOCYTES 6.9 % (2-11); NEUTROPHILS 65.1 % (40-80); PLATELET COUNT 245 10x3/uL (130-400); RBC 3.78 10x6/uL (4.00-5.40); WBC 9.2 10x3/uL (4.8-10.8)
[2018-03-01 08:46] LABS: ALBUMIN 3.3 g/dL (3.4-5.0); ALKALINE PHOSPHATASE 38 U/L (46-116); ALT (SGPT) 28 U/L (10-68); BILIRUBIN - TOTAL 0.39 mg/dL (0.2-1.3); CALC OSMOLALITY 282 mosm/kg (275-300); CALCIUM 9.4 mg/dL (8.5-10.1); CARBON DIOXIDE 27.3 mmol/L (21.0-32.0); CHLORIDE - SERUM 103 mmol/L (98-107); GLUCOSE 202 mg/dL (74-106); POTASSIUM - SERUM 3.8 mmol/L (3.5-5.1); PROTEIN - SERUM 7.1 g/dL (6.4-8.2); SODIUM 139 mmol/L (136-145); UREA NITROGEN 9 mg/dL (7-18); eGFR NON AFRICAN AMERICAN 57 mL/min (90-120)
[2018-03-01 08:58] LABS: CKMB 2.7 U/L (0.0-3.6); CREATINE KINASE 54 UL (21-215); PRO BNP 3777 pg/mL (0-125)
[2018-03-01 08:59] LABS: TROPONIN-I 0.016 ng/mL (0.000-0.060)
[2018-03-01 09:00] VITALS: BP 154/75
[2018-03-01 09:17] VITALS: BP 151/61
[2018-03-01 09:23] LABS: KETONE - SERUM NEGATIVE (NEGATIVE)
[2018-03-01 09:25] LABS: CREATINE KINASE 56 UL (21-215); MAGNESIUM - SERUM 1.3 mg/dL (1.8-2.4); TROPONIN-I 0.022 ng/mL (0.000-0.060)
[2018-03-01 09:28] VITALS: BP 176/80
[2018-03-01] MEDS ORDERED: K-DUR20 MEQ PO (10:37)
[2018-03-01] MEDS ORDERED: LASIX80 MG PO (10:38)
[2018-03-01] MEDS ORDERED: LEXAPRO10 MG PO (10:40)
[2018-03-01 12:04] VITALS: BP 137/61; BMI 36.5
[2018-03-01 20:00] VITALS: BP 148/61
[2018-03-02] VITALS: BP 155/68
[2018-03-02 04:00] VITALS: BP 161/75
[2018-03-02 05:18] LABS: BASOPHILS 0.4 % (0-2); EOSINOPHILS 4.1 % (0-7); HEMATOCRIT 35.6 % (36.0-48.0); IMMATURE GRANULOCYTES 0.2 % (0-5); MCH 31.9 pg (26.0-34.0); MCHC 33.7 g/dL (31.0-37.0); MCV 94.7 fL (80.0-100.0); MEAN PLATELET VOLUME 10.2 fL (7.4-10.4); MONOCYTES 6.6 % (2-11); NEUTROPHILS 67.7 % (40-80); PLATELET COUNT 242 10x3/uL (130-400); RBC 3.76 10x6/uL (4.00-5.40); RDW 14.1 % (11.5-14.5); WBC 8.2 10x3/uL (4.8-10.8)
[2018-03-02 05:34] LABS: ALBUMIN 3.3 g/dL (3.4-5.0); ANION GAP 11.5 mmol/L (8-16); BILIRUBIN - TOTAL 0.58 mg/dL (0.2-1.3); CALCIUM 9.3 mg/dL (8.5-10.1); CARBON DIOXIDE 32.8 mmol/L (21.0-32.0); CREATININE - SERUM 1.1 mg/dL (0.6-1.3); POTASSIUM - SERUM 3.3 mmol/L (3.5-5.1); PROTEIN - SERUM 7.1 g/dL (6.4-8.2)
[2018-03-02 08:38] VITALS: BP 149/73
[2018-03-02 10:55] VITALS: BP 132/57
[2018-03-02 14:10] VITALS: Ht 172.7 cm; Wt 108.9 kg
[2018-03-02 14:38] LABS: BASOPHILS 0.3 % (0-2); EOSINOPHILS 4.7 % (0-7); HEMATOCRIT 35.5 % (36.0-48.0); IMMATURE GRANULOCYTES 0.2 % (0-5); LYMPHOCYTES 25.3 % (15-50); MCH 31.9 pg (26.0-34.0); MCHC 33.8 g/dL (31.0-37.0); MCV 94.4 fL (80.0-100.0); MONOCYTES 6.5 % (2-11); PLATELET COUNT 257 10x3/uL (130-400); RBC 3.76 10x6/uL (4.00-5.40); RDW 14.1 % (11.5-14.5); WBC 8.6 10x3/uL (4.8-10.8)
[2018-03-02 15:16] LABS: ANION GAP 12.1 mmol/L (8-16); CALCIUM 9.2 mg/dL (8.5-10.1); CARBON DIOXIDE 32.5 mmol/L (21.0-32.0); CREATININE - SERUM 1.3 mg/dL (0.6-1.3); POTASSIUM - SERUM 3.6 mmol/L (3.5-5.1)
[2018-03-02 15:20] VITALS: BP 120/57
[2018-03-02 21:24] VITALS: BP 135/45
[2018-03-03] VITALS: BP 135/48
[2018-03-03 04:31] LABS: BASOPHILS 0.5 % (0-2); EOSINOPHILS 4.2 % (0-7); HEMATOCRIT 35.1 % (36.0-48.0); HEMOGLOBIN 11.7 g/dL (12-16); IMMATURE GRANULOCYTES 0.4 % (0-5); LYMPHOCYTES 24.3 % (15-50); MCH 31.7 pg (26.0-34.0); MCHC 33.3 g/dL (31.0-37.0); MCV 95.1 fL (80.0-100.0); MEAN PLATELET VOLUME 10.3 fL (7.4-10.4); MONOCYTES 7.1 % (2-11); NEUTROPHILS 63.5 % (40-80); PLATELET COUNT 233 10x3/uL (130-400); RBC 3.69 10x6/uL (4.00-5.40); RDW 14.1 % (11.5-14.5); WBC 7.3 10x3/uL (4.8-10.8)
[2018-03-03 04:44] VITALS: BP 116/48
[2018-03-03 04:49] LABS: ANION GAP 10.6 mmol/L (8-16); CALCIUM 8.8 mg/dL (8.5-10.1); CARBON DIOXIDE 31.8 mmol/L (21.0-32.0); CREATININE - SERUM 1.2 mg/dL (0.6-1.3); POTASSIUM - SERUM 3.4 mmol/L (3.5-5.1)
[2018-03-03 07:30] VITALS: BP 148/64
[2018-03-03 11:00] VITALS: BP 132/67
[2018-03-03 15:00] VITALS: BP 146/71
== END 2018-03-03 21:27 | disposition home or self-care (01) ==
LOC: D.ER 08:12 → D.M2 09:48 → D.EDHOLD 09:48 → OBSVTIME 09:48 → D.M2 09:48 → D.ER 09:48 → D.M2 10:03 → D.EDHOLD 10:03 → D.M2 03-03 21:27
PROVIDERS: Emergency Medicine; Family Medicine; Internal Medicine Interventional Cardiology
PROC: 4A023N7 Measurement of Cardiac Sampling and Pressure, Left Heart, Percutaneous Approach (ICD-10-PCS; 2018-03-03)
PROC: B2111ZZ Fluoroscopy of Multiple Coronary Arteries using Low Osmolar Contrast (ICD-10-PCS; 2018-03-03)
PROC: B2151ZZ Fluoroscopy of Left Heart using Low Osmolar Contrast (ICD-10-PCS; 2018-03-03)
PROC: 02703DZ Dilation of Coronary Artery, One Artery with Intraluminal Device, Percutaneous Approach (ICD-10-PCS; principal; 2018-03-03 15:00)
DX: I25.10 Atherosclerotic heart disease of native coronary artery without angina pectoris (principal); I50.31 Acute diastolic (congestive) heart failure; I11.0 Hypertensive heart disease with heart failure; E11.40 Type 2 diabetes mellitus with diabetic neuropathy, unspecified; E78.5 Hyperlipidemia, unspecified

== ENCOUNTER 2018-06-12 21:39 | Inpatient (IN) | payer MEDICARE ==
[~2018-06-12] VITALS: Ht 172.7 cm; Wt 106.1 kg
[~2018-06-12 21:39] MED LIST changes: +LASIX80 MG PO; +LEXAPRO10 MG PO
[2018-06-12 22:41] LABS: BASOPHILS 0.2 % (0-2); HEMATOCRIT 33.8 % (36.0-48.0); HEMOGLOBIN 11.2 g/dL (12-16); IMMATURE GRANULOCYTES 0.2 % (0-5); LYMPHOCYTES 19.9 % (15-50); MCH 31.1 pg (26.0-34.0); MCHC 33.1 g/dL (31.0-37.0); MCV 93.9 fL (80.0-100.0); MEAN PLATELET VOLUME 10.2 fL (7.4-10.4); MONOCYTES 5.2 % (2-11); NEUTROPHILS 72.5 % (40-80); PLATELET COUNT 233 10x3/uL (130-400); RDW 14.8 % (11.5-14.5); WBC 8.4 10x3/uL (4.8-10.8)
[2018-06-12 22:58] LABS: D-DIMER-QUANTITATIVE < 0.27 ug/mLFEU (0.20-0.54)
[2018-06-12 23:03] LABS: INR 0.99 (0.85-1.17); PROTIME 12.6 SECONDS (11.6-15.0)
[2018-06-12 23:05] LABS: APTT 28.6 SECONDS (22.8-39.4)
[2018-06-12 23:07] LABS: ALBUMIN 3.2 g/dL (3.4-5.0); ALKALINE PHOSPHATASE 46 U/L (46-116); ALT (SGPT) 21 U/L (10-68); BILIRUBIN - TOTAL 0.52 mg/dL (0.2-1.3); CALC OSMOLALITY 287 mosm/kg (275-300); CALCIUM 9.1 mg/dL (8.5-10.1); CARBON DIOXIDE 28.8 mmol/L (21.0-32.0); CHLORIDE - SERUM 101 mmol/L (98-107); CREATININE - SERUM 1.2 mg/dL (0.6-1.3); GLUCOSE 247 mg/dL (74-106); POTASSIUM - SERUM 3.7 mmol/L (3.5-5.1); PROTEIN - SERUM 7.3 g/dL (6.4-8.2); SODIUM 139 mmol/L (136-145); UREA NITROGEN 19 mg/dL (7-18); eGFR NON AFRICAN AMERICAN 46 mL/min (90-120)
[2018-06-12 23:21] LABS: CKMB 2.5 U/L (0.0-3.6); CREATINE KINASE 68 UL (21-215); PRO BNP 3051 pg/mL (0-125); TROPONIN-I 0.032 ng/mL (0.000-0.060)
--- NOTE | 2018-06-12 23:42 | NUR ---
PT AMBULATED TO RESTROOM INDEPENDENTLY.
--- NOTE | 2018-06-13 01:29 | NUR ---
RECEIVED TO FLOOR FROM ER, ORIENTED TO ROOM, DENIES NEEDS, BED LOWEST POSITION, CALL LIGHT ON, ADVISED PT TO CALL FOR HELP TO GET UP, WILL CONTINUE POC
[2018-06-13 01:32] VITALS: BP 133/61; BMI 35.6
[2018-06-13 05:26] VITALS: BP 110/80
--- NOTE | 2018-06-13 07:30 | NUR ---
PATIENT IN BED WITH NO COMMPLAINTS OR SIGNS OF DISTRESS. IV INTACT. CALL LIGHT WITHIN REACH.
[2018-06-13 09:09] VITALS: BP 146/65
--- NOTE | 2018-06-13 10:08 | NUR ---
PT SITTING UP IN BED RESTING THIS AM. STATES THAT SHE IS FEELING BETTER TODAY, DENIES PAIN. STATES THAT SHE CAN BREATH A LOT BETTER WELL. LCTA. RESPIRATIONS EVEN AND UNLABORED. PT IS WAITING FOR CONSULTED DOCTOR TO SEE HER. DENIES FURTHER NEEDS. BED LOW AND LOCKED, SR UP X2, CL IN EASY REACH. WILL CONTINUE TO MONITOR THROUGHOUT THE DAY.
[2018-06-13 13:15] VITALS: BP 152/74
[2018-06-13 20:53] VITALS: BP 157/60
--- NOTE | 2018-06-13 22:01 | NUR ---
PT C/O SOB AND FEELING LIKE SHE IS DROWNING AT HOME SHE TAKES HER LEXAPRO AND WOULD LIKE AN UPDRAFT. ORDER RECEIVED FOR LEXAPRO AND DUONEB.
[2018-06-14 00:50] VITALS: BP 154/66
--- NOTE | 2018-06-14 02:30 | NUR ---
PT C/O INCREASING SOB. SATING 95% ON 2L O2. AGAIN FEELING LIKE SHE IS DROWNING. ORDER RECEIVED FOR LASIX 40MG IV X1.
[2018-06-14 05:02] VITALS: BP 113/69
--- NOTE | 2018-06-14 06:04 | NUR ---
PT REPORTS FEELING MUCH BETTER.
[2018-06-14 07:37] LABS: BASOPHILS 0.4 % (0-2); EOSINOPHILS 2.1 % (0-7); HEMATOCRIT 33.9 % (36.0-48.0); HEMOGLOBIN 11.1 g/dL (12-16); IMMATURE GRANULOCYTES 0.2 % (0-5); LYMPHOCYTES 24.4 % (15-50); MCH 30.9 pg (26.0-34.0); MCHC 32.7 g/dL (31.0-37.0); MCV 94.4 fL (80.0-100.0); MEAN PLATELET VOLUME 10.7 fL (7.4-10.4); MONOCYTES 5.8 % (2-11); NEUTROPHILS 67.1 % (40-80); PLATELET COUNT 253 10x3/uL (130-400); RBC 3.59 10x6/uL (4.00-5.40); RDW 14.8 % (11.5-14.5); WBC 8.1 10x3/uL (4.8-10.8)
--- NOTE | 2018-06-14 07:59 | NUR ---
PT SITTING UP IN BED THIS AM WATCHING TV. RESPIRATIONS EVEN AND UNLABORED, NO S/S OF DISTRESS NOTED. LCTA, O2 NOTED @ 3L VIA NC. DENIES NEEDS AT THIS TIME. VOICES THAT SHE CAN BREATH A LOT BETTER AFTER GETTING HER DOSE OF LASIX AND BREATHING TREATMENTS. BED LOW AND LOCKED, SR UP X2, CL IN EASY REACH. WILL CONTINUE TO MONITOR THROUGHOUT THE DAY.
[2018-06-14 08:00] VITALS: BP 151/70
[2018-06-14 08:18] LABS: CALC OSMOLALITY 292 mosm/kg (275-300); CALCIUM 9.2 mg/dL (8.5-10.1); CARBON DIOXIDE 28.8 mmol/L (21.0-32.0); CHLORIDE - SERUM 102 mmol/L (98-107); CKMB 2.1 U/L (0.0-3.6); CREATININE - SERUM 1.1 mg/dL (0.6-1.3); MAGNESIUM - SERUM 1.4 mg/dL (1.8-2.4); PHOSPHOROUS 3.2 mg/dL (2.5-4.9); POTASSIUM - SERUM 3.6 mmol/L (3.5-5.1); PRO BNP 6537 pg/mL (0-125); SODIUM 144 mmol/L (136-145); TROPONIN-I 0.053 ng/mL (0.000-0.060); UREA NITROGEN 15 mg/dL (7-18); eGFR NON AFRICAN AMERICAN 51 mL/min (90-120)
[2018-06-14 08:22] LABS: GLUCOSE 183 mg/dL (74-106)
--- NOTE | 2018-06-14 10:05 | NUR ---
PATIENT SITTING UP IN BED EATING IN. NO COMPLAINTS. IV INTACT. FAMILY AT BEDSIDE.
[2018-06-14 12:00] VITALS: BP 154/67
--- NOTE | 2018-06-14 12:14 | HP ---
PATIENT: SABIHA POP MEDICAL RECORD: [id number] ACCOUNT: [id number] LOCATION:D.MS [facility] : 43 ADMISSION DATE: 06/13/18 PCP: JULIO CHAMBERS MD HISTORY AND PHYSICAL EXAMINATION HISTORY OF PRESENT ILLNESS: A 72-year-old female presented to the Emergency Room with chest pain and shortness of breath, has an extensive cardiac history with 4 prior stents with known cardiovascular disease, cardiomegaly, last ejection fraction was 30-40% on echocardiogram. Has history of hypertension, diabetes. Had been having progressive shortness of breath since Friday, acute onset last night with sharp chest pain and severe shortness of breath. Symptoms partially relieved with nitroglycerin sublingual and significant improvement after oxygen introduced. ALLERGIES: REPORTED METHYLPREDNISOLONE. MEDICATIONS: Listed as metformin, quinapril, carvedilol, pravastatin, aspirin, doxazosin, glipizide, gemfibrozil, vitamin D, potassium chloride, Lasix. REVIEW OF SYSTEMS: GENERAL: No acute change in weight or appetite. HEENT: No cephalgia, visual changes, tinnitus, epistaxis, or dysphagia. CARDIOVASCULAR: Significant as stated above with progressive shortness of breath since Friday and chest pain and severe shortness of breath last night. PULMONARY: Denies hemoptysis, denies night sweats. GASTROINTESTINAL: Denies hematemesis, hematochezia or melena. Had one episode of diarrhea yesterday. GENITOURINARY: Denies dysuria. MUSCULOSKELETAL: No acute changes. ENDOCRINE: Denies polyuria, polydipsia, or polyphagia. FAMILY HISTORY: Significant for a sibling with lung disease, cancer. Parent with cardiovascular disease, diabetes, cancer. Child with cardiovascular disease. SOCIAL HISTORY: Denies alcohol or tobacco. Denies recreational drug use. PHYSICAL EXAMINATION: VITAL SIGNS: Temp 97.5, blood pressure is 146/65, heart rate 78, respirations 18, O2 sats 96% with 2 liters via nasal cannula. GENERAL: Alert and oriented, no present distress. HEENT: Normocephalic, atraumatic. Eyes: Pupils are equally round and reactive to light and accommodation. Extraocular muscles intact. Conjunctivae not injected. Ears: Canals patent, TMs are intact. Nose: Nares patent without drainage. Throat: No erythema, no exudates. NECK: Supple. No lymphadenopathy. HEART: Regular rate and rhythm. No S3, S4, no rub. LUNGS: Clear to auscultation bilaterally. Breathing is nonlabored. ABDOMEN: Soft, nontender. Bowel sounds positive. EXTREMITIES: Present times 4. No significant edema. NEUROLOGIC: No focal deficits. SKIN: Warm and dry. No rash. LABORATORY AND DIAGNOSTIC DATA: EKG shows sinus rhythm with a rate of 90, left bundle branch block. Chest x-ray findings likely reflective of congestive heart HISTORY AND PHYSICAL [id number] DONN,SABIHA ALLAN failure, pulmonary venous congestion, moderate cardiomegaly. CBC: White count 8.4, hemoglobin 11.2, hematocrit 33.8, platelets 233. INR 0.99, PT is 12.6, PTT is 28.6. D-dimer is less than 0.27. Sodium 139, potassium 3.7, chloride 101, bicarbonate 28.8, BUN 19, creatinine 1.2, calcium 9.1, T-bili 0.52, AST 16, ALT 21, alkaline phosphatase 46. CK 68, CK-MB 2.5, troponin 0.032. ProBNP 3051. Albumin 3.2. ASSESSMENT AND PLAN: 1. Acute shortness of breath with chest pain. Cardiology consulted. Echocardiogram pending. 2. Diabetes mellitus. We will hold oral medications, add sliding scale insulin, pending cardiac therapy and recommendations. TRANSINT:[id number] Voice Confirmation ID: [id number] DOCUMENT ID: [id number] RICHIE PAYTON DO at 1214 CC: [id number] DICTATION DATE: 06/13/18 1246 BINMAN: 06/13/18 1326 ADM IN [facility] [address] [id number]
--- NOTE | 2018-06-14 16:56 | NUR ---
PT SITTING ON SIDE OF BED TALKING WITH FAMILY MEMBER. PT HAS BEEN IN HIGH SPIRITS TODAY, STILL A LITTLE ANXIOUS FROM HAVING SOB LAST NIGHT. O2 RUNNING AT 3L VIA NC. PT GIVEN BUMEX THIS AM PER DOCTOR'S ORDERS. PT HAS BEEN VOIDING A LOT TODAY AND VOICES THAT SHE IS FEELING A LOT BETTER. CL IN EASY REACH.
--- NOTE | 2018-06-14 17:38 | NUR ---
SALINE LOCK TO LT.A/C WITHOUT S/S OF INFECTION/INFILTRATION.SCATTERED EXPIRATORY WHEEZES NOTED. TELEMETRY INTACT SR88. NO COMPLAINTS NOTED. ENCOURAGED TO USE CALL LIGHT FOR ASSIST.
[2018-06-14 21:02] VITALS: BP 134/48
[2018-06-15 00:43] VITALS: BP 106/41
[2018-06-15 05:00] VITALS: BP 136/62
[2018-06-15 05:38] LABS: BASOPHILS 0.4 % (0-2); EOSINOPHILS 3.5 % (0-7); HEMATOCRIT 33.3 % (36.0-48.0); HEMOGLOBIN 10.8 g/dL (12-16); IMMATURE GRANULOCYTES 0.3 % (0-5); LYMPHOCYTES 26.9 % (15-50); MCH 30.9 pg (26.0-34.0); MCHC 32.4 g/dL (31.0-37.0); MCV 95.1 fL (80.0-100.0); MEAN PLATELET VOLUME 10.4 fL (7.4-10.4); MONOCYTES 7.3 % (2-11); NEUTROPHILS 61.6 % (40-80); PLATELET COUNT 253 10x3/uL (130-400); RDW 14.7 % (11.5-14.5); WBC 6.9 10x3/uL (4.8-10.8)
[2018-06-15 06:00] VITALS: BP 125/44
[2018-06-15 06:05] LABS: CALC OSMOLALITY 283 mosm/kg (275-300); CALCIUM 8.7 mg/dL (8.5-10.1); CARBON DIOXIDE 33.5 mmol/L (21.0-32.0); CHLORIDE - SERUM 101 mmol/L (98-107); CKMB 1.2 U/L (0.0-3.6); CREATININE - SERUM 1.1 mg/dL (0.6-1.3); GLUCOSE 179 mg/dL (74-106); MAGNESIUM - SERUM 1.5 mg/dL (1.8-2.4); POTASSIUM - SERUM 3.4 mmol/L (3.5-5.1); PRO BNP 5876 pg/mL (0-125); SODIUM 140 mmol/L (136-145); UREA NITROGEN 15 mg/dL (7-18); eGFR NON AFRICAN AMERICAN 51 mL/min (90-120)
[2018-06-15 06:24] LABS: PHOSPHOROUS 4.1 mg/dL (2.5-4.9)
[2018-06-15 06:25] LABS: TROPONIN-I 0.067 ng/mL (0.000-0.060)
--- NOTE | 2018-06-15 07:22 | NUR ---
CALL FROM [facility] 0.067 CALL TO [address] MACHUCA STATED DR. FLORES WILL TAKE CARE OF HE HAS PROBLY ALREADY SEE HER. POTASSIUM 3.4 WITH 40MEQ PER ELECT PROTOCOL RECHECK ORDER IN FOR 1050AM MAGNESIUM 1.5 GAVE ONE DOSE OF 400MG PO AT 646AM NEXTED AT 1046
[2018-06-15 08:09] VITALS: BP 133/49
[2018-06-15 12:09] VITALS: BP 110/45
--- NOTE | 2018-06-15 12:19 | NUR ---
RESTING QUIETLY IN BED. NO NEEDS NOTED. 023LNC.
[2018-06-15 13:33] VITALS: Ht 172.7 cm; Wt 106.1 kg
--- NOTE | 2018-06-15 16:26 | NUR ---
AGNES RANGING FROM 20 UPON ADMISSION 06/14/18 TO 22 TODAY NO SKIN ISSUES
--- NOTE | 2018-06-15 16:36 | NUR ---
PT C/O LEFT UPPER QUADRANT PAIN, STATES IT IS INTERMITTENT AND DESCRIBES PAIN A JOLTING PAIN THAT COMES AND GOES, PT STATES SHE HAD 2 SPOUTS OF RUNNY STOOLS AFTER LUNCH THAT WERE QUITE LARGE, NO OTHER NEEDS VOICED, CONTINUE [facility] PLAN OF CARE
[2018-06-15 20:00] VITALS: BP 125/44
--- NOTE | 2018-06-15 21:00 | NUR ---
FSBS 222 4 UNITS OF INSULIN GIVEN PER SS.
--- NOTE | 2018-06-16 02:47 | NUR ---
EYES CLOSED RESPIRATIONS WITH EASE AND UNLABORED. SR UP X2 CALL LIGHT WITHIN REACH.
[2018-06-16 04:42] LABS: BASOPHILS 0.6 % (0-2); EOSINOPHILS 3.5 % (0-7); HEMATOCRIT 32.4 % (36.0-48.0); HEMOGLOBIN 10.5 g/dL (12-16); IMMATURE GRANULOCYTES 0.3 % (0-5); LYMPHOCYTES 29.6 % (15-50); MCH 30.6 pg (26.0-34.0); MCHC 32.4 g/dL (31.0-37.0); MCV 94.5 fL (80.0-100.0); PLATELET COUNT 228 10x3/uL (130-400); RBC 3.43 10x6/uL (4.00-5.40); RDW 14.7 % (11.5-14.5); WBC 6.6 10x3/uL (4.8-10.8)
[2018-06-16 05:16] LABS: ANION GAP 10.5 mmol/L (8-16); CALCIUM 9.1 mg/dL (8.5-10.1); CARBON DIOXIDE 33.5 mmol/L (21.0-32.0); MAGNESIUM - SERUM 1.7 mg/dL (1.8-2.4)
[2018-06-16 05:17] LABS: CREATININE - SERUM 1.4 mg/dL (0.6-1.3)
[2018-06-16 05:29] VITALS: BP 109/44
--- NOTE | 2018-06-16 06:00 | NUR ---
FSBS 214 4 UNITS OF INSULIN GIVEN PER SS.
[2018-06-16 08:24] VITALS: BP 107/37
[2018-06-16 12:49] VITALS: BP 120/43
--- NOTE | 2018-06-16 15:01 | CN ---
PATIENT NAME:SABIHA POP MEDICAL RECORD: [id number] : 41 LOCATION:D.MS [facility] ADMIT DATE: 06/14/18 ACCOUNT: [id number] CONSULTING PHYSICIAN: PHIL MIRANDA MD REFERRING PHYSICIAN: JULIO CHAMBERS MD DATE OF CONSULTATION: 06/13/2018 HISTORY OF PRESENT ILLNESS: A 72-year-old lady well known to me with a history of coronary artery disease as well as cardiomyopathy, has a history of hypertension, diabetes mellitus. Reports really progressive volume overload since Friday. She actually felt like she over did it and is not quite improved and actually worsened since that time. Has been compliant with medications. No dietary indiscretion by her report. We are asked to see her concerning her cardiovascular status. PAST MEDICAL HISTORY: Includes: 1. History of diabetes mellitus. 2. Hypertension. 3. Hyperlipidemia. 4. Coronary artery disease as described above. 5. Cardiac arrhythmias, SVT. ALLERGIES: METHYLPREDNISOLONE. MEDICATIONS: Include Plavix 75 mg every day, carvedilol 25 b.i.d., Cardura 4 every day, gemfibrozil 600 b.i.d., pravastatin 40 at bedtime, quinapril 40 b.i.d., aspirin 81 every day, Lexapro 10 every day, Lasix 80 b.i.d., Lotrel 5 b.i.d., and metformin 500 b.i.d. SOCIAL HISTORY: , nonsmoker, nondrinker. Currently lives with brother. Easily takes care of all her ADLs. REVIEW OF SYSTEMS: The patient reports easy bruising but reports no swollen glands. The patient reports no fever, no night sweats, no significant weight gain, no significant weight loss. No significant exercise tolerance. The patient reports no dry eyes, no irritation, no vision change. Patient reports no difficulty hearing and no ear pain. Patient reports no frequent nose bleeds or nose and sinus problems. Patient reports on arm pain on exertion. No shortness of breath while lying down. No history of heart murmur. Patient reports no cough, no wheezing or coughing up blood. Patient reports no abdominal pain, no vomiting. Normal appetite. No diarrhea and not vomiting blood. No nausea and no constipation. Patient reports no incontinence. No difficulty urinating. No hematuria. No increased frequency. Patient reports no muscle aches. No weakness, no arthralgias, no back pain. No swelling of the extremities. Patient reports no abnormal mole, no jaundice, no rashes. Reports no loss of consciousness. No weakness and no numbness. No seizures, dizziness, or headaches. The patient reports no depression, no sleep disturbance, feeling safe in a relationship and no alcohol abuse. Patient reports on fatigue. Reports no runny nose or sinus pressure. No itching, no hives, and no frequent sneezing. PHYSICAL EXAMINATION: GENERAL: Pleasant female, in no acute distress, appears comfortable at this point. VITAL SIGNS: Blood pressure 146/65, pulse 78 and regular. CONSULT REPORT [id number] SABIHA POP HEENT: Normocephalic and atraumatic. NECK: No JVD or bruit. HEART: Regular. LUNG GALLOWAY: Few basilar crackles. ABDOMEN: Soft and nontender. EXTREMITIES: Pulses 1+. There is trace edema. IMPRESSION: Volume overload. Responding nicely to current therapy. Cardiac enzymes are negative at this point. I discussed with Ms. Pop if symptomology continues to improve, we would add Aldactone to her cardiomyopathic medications. No evidence of ischemia at this point. TRANSINT:[id number] Voice Confirmation ID: [id number] DOCUMENT ID: [id number] PHIL MIRANDA MD at 1501 CC: [id number] DICTATION DATE: 06/13/18 1129 ART MUSEUM DOCENT: 06/13/18 1243 ADM IN [address] [place] [address]
--- NOTE | 2018-06-16 15:01 | EC ---
PATIENT:SABIHA POP DATE OF SERVICE: 06/13/18 SEX: F MEDICAL RECORD: [id number] DATE OF : 41 LOCATION:D.MS [facility] AGE OF PATIENT: 72 ADMISSION DATE: 06/14/18 REFERRING PHYSICIAN: INTERPRETING PHYSICIAN: PHIL MIRANDA MD ECHOCARDIOGRAM REPORT ECHO CHARGES 4 ECHO COMPLETE Date: 06/13/18 CLINICAL DIAGNOSIS: CHF ECHOCARDIOGRAPHIC MEASUREMENTS (adult normal given) AC root (d.<3.7cm) 3.2 cm LV Septum d (<1.2 cm> 1.5 cm Valve Excursion 1.4 cm LV Septum (systole) 2.0 cm Left Atria (s.<4.0cm> 5.1 cm LVPW d(<1.2cm) 1.4 cm RV (d.<2.3cm) 2.3 cm LVPW (sytole) 2.0 cm LV diastole(<5.6CM) 6.7 cm MV E-F(>70mm/sec) cm LV systole 4.9 cm LVOT Diameter 1.9 cm MV exc.(>10mm) cm Est.ejection fraction (50-75%) % DOPPLER: LVIT cm/sec A 66.0 cm/sec E 147 cm/sec LA cm/sec RVSP 39.0 mmHg LVOT 66.0 cm/sec AOP1/2T m/s Asc. Ao 185 cm/sec RVOT 64.0 cm/sec RA cm/sec PA 71.0 cm/sec AV Gradient Peak 14.0 mmHg AV Mean 7.4 mmHg AV Area 1.0 cm MV Gradient Peak 8.0 mmHg MV Mean 3.0 mmHg MV Area cm COMMENTS: Engine Head Repairer: 1 KIN MCGILLOE Fresh Food Manager: 3 Dr. Samano TAPE# PACS Pericardial Effusion N DATE OF SERVICE: Adequate 2-D Echo, Color Flow and Spectral Doppler, and M-mode Borderline LVH. LV internal dimensions are normal. LV is globally hypokinetic with reduced EF, estimated EF 30% to 35%. Aortic valve sclerosis without stenosis by Doppler interrogation. Left atrium is mildly dilated. Mitral valve shows no prolapse. Mild MR. Right-sided chambers are normal. Trace TR. TRANSINT:[id number] Voice Confirmation ID: [id number] DOCUMENT ID: [id number] ECHOCARDIOGRAM REPORT [id number] SABIHA POP GREGORY A MD at 1501 CC: [id number] DICTATION DATE: 06/13/181845 RADIOLOGY TRANSCRIPTIONIST: 06/14/18 0224 ADM IN [facility] [address] [id number]
[2018-06-16 16:08] VITALS: BP 128/41
--- NOTE | 2018-06-16 17:40 | MORECARE ---
CASE MANAGEMENT DISCHARGE SUMMARY PATIENT: SABIHA POP UNIT: [id number] ADM DATE: 06/14/18 AGE: 72 : 43 SEX: F ROOM/BED: D.2212 AUTHOR: REVA NUNES PHYSICIAN: REFERRING PHYSICIAN: JULIO CHAMBERS MD DATE OF SERVICE: 06/16/18 Discharge Plan Patient Name: SABIHA POP Facility: [facility]:[place] : 1945 Planned Disposition: Home Anticipated Discharge Date: 06/17/18 Discharge Date: Expected LOS: 3 Initial Reviewer: [email or web address] Initial Review Date: 06/16/2018 Generated: 06/16/18 6:40 pm DCPIA - Discharge Planning Initial Assessment Updated by [email or web address]: Celena Tate on 06/16/18 5:37 pm * Is the patient Alert and Oriented? Yes * How many steps to enter\exit or inside your home? RAMP * PCP DR. CHAMBERS * Pharmacy [facility] * Preadmission Environment Home with Family * ADLs Independent * Equipment Cane Glucometer Grab Bars * List name and contact numbers for known caregivers / representatives who currently or will assist patient after discharge: CHRIS NOLAN (BROTHER) [phone] CELL [phone] * Verbal permission to speak to the caregivers and representatives has been obtained from the patient. Yes * Community resources currently utilized None * Additional services required to return to the preadmission environment? Yes * Can the patient safely return to the preadmission environment? Yes * Has this patient been hospitalized within the prior 30 days at any hospital? No Patient Name: SABIHA POP Page [id number] at 1740 All edits/amendments must be made on the electronic document DICTATION DATE: 06/16/181738 COMMERCIAL GREEN RETROFIT ARCHITECT: JOHNIE 06/16/181738 RPT#: [id number] DC DATE: STATUS: ADM IN [facility] [address] [place] [address] END OF REPORT
--- NOTE | 2018-06-16 17:47 | MORECARE ---
CASE MANAGEMENT DISCHARGE SUMMARY PATIENT: SABIHA POP UNIT: [id number] ADM DATE: 06/14/18 AGE: 72 : 43 SEX: F ROOM/BED: D.2212 AUTHOR: DESDOC PHYSICIAN: REFERRING PHYSICIAN: JULIO CHAMBERS MD DATE OF SERVICE: 06/16/18 Discharge Plan Patient Name: SABIHA POP Facility: [facility]:[place] : 1945 Planned Disposition: Home Anticipated Discharge Date: 06/17/18 Discharge Date: Expected LOS: 3 Initial Reviewer: [email or web address] Initial Review Date: 06/16/2018 Generated: 06/16/18 6:47 pm Comments DCP- Discharge Planning Updated by [email or web address]: Celena Tate on 06/16/18 4:[address] Patient Name: SABIHA POP Admission Status: ER Accout number: [id number] Admission Date: 06-14-2018 : 1945 Admission Diagnosis: Attending: JULIO CHAMBERS Current LOS: 2 Anticipated DC Date: 06-17-2018 Planned Disposition: Home Primary Insurance: [facility] MEDICARE SOLUTIONS Discharge Planning Comments: CM MET WITH PATIENT REGARDING D/C NEEDS AND PLANS. PATIENT STATED SHE LIVES WITH HER BROTHER (CHRIS) AND HIS . PATIENT STATED SHE HAS A RAMP TO ENTER HER HOME AND NO STAIRS INSIDE. PATIENTS BROTHER WILL DRIVE HER HOME AT DISCHARGE. PATIENT STATED SHE IS INDEPENDENT WITH HER CARE AND HAS A CANE, GLUCOMETER, AND GRAB BARS AT HER HOME. PATIENTS PCP IS DR. CHAMBERS AND PAHRMACY IS [facility]. PATIENT REFUSED HOME HEALTH. CM WILL CONTINUE TO FOLLOW PATIENT WITH D/C NEEDS AND PLANS. PCP DR[facility] [employer] [facility] CHRIS NOLAN (BROTHER) [phone] Director Of Broadcast: Celena Tate DCPIA - Discharge Planning Initial Assessment Updated by [email or web address]: Celena Tate on 06/16/18 5:37 pm * Is the patient Alert and Oriented? Yes * How many steps to enter\exit or inside your home? RAMP * PCP DR. CHAMBERS * [facility] * Preadmission Environment Home with Family * ADLs Independent * Equipment Cane Glucometer Grab Bars * List name and contact numbers for known caregivers / representatives who currently or will assist patient after discharge: CHRIS NOLAN (BROTHER) [phone] CELL [phone] * Verbal permission to speak to the caregivers and representatives has been obtained from the patient. Yes * Community resources currently utilized None * Additional services required to return to the preadmission environment? Yes * Can the patient safely return to the preadmission environment? Yes * Has this patient been hospitalized within the prior 30 days at any hospital? No Coverage Notice Reviewer: [email or web address] Ava Tate Notice Issued Date-Time: 06/16/2018 17:32 Notice Type: IM Discharge Notice Notice Delivered To: Patient Relationship to Patient: Cleaner Assistant Name: Delivery Method: HAND - Hand Delivered Azeb Days: Prior Verbal Notification: Recipient Understood Notice: Yes Recipient Signature: Yes Med Rec Note Co-signed by Attending: Coverage Notice Comment: Last DP export: 06/16/18 4:40 p Patient Name: SABIHA POP Page [id number] at 1747 All edits/amendments must be made on the electronic document DICTATION DATE: 06/16/181746 SAMPLE PREP TECHNICIAN: JOHNIE 06/16/181746 RPT#: [id number] DC DATE: STATUS: ADM IN [facility] [address] [place] [address] END OF REPORT
[2018-06-16 20:00] VITALS: BP 123/61
--- NOTE | 2018-06-17 04:06 | NUR ---
EYES CLOSED RESPIRATIONS WITH EASE AND UNLABORED. SR UP X2 CALL LIGHT WITHIN REACH.
[2018-06-17 04:17] LABS: BASOPHILS 0.5 % (0-2); HEMATOCRIT 33.8 % (36.0-48.0); HEMOGLOBIN 11.1 g/dL (12-16); IMMATURE GRANULOCYTES 0.3 % (0-5); LYMPHOCYTES 33.7 % (15-50); MCHC 32.8 g/dL (31.0-37.0); MCV 94.4 fL (80.0-100.0); MEAN PLATELET VOLUME 10.4 fL (7.4-10.4); MONOCYTES 7.7 % (2-11); NEUTROPHILS 54.8 % (40-80); PLATELET COUNT 262 10x3/uL (130-400); RBC 3.58 10x6/uL (4.00-5.40); RDW 14.7 % (11.5-14.5); WBC 6.4 10x3/uL (4.8-10.8)
[2018-06-17 04:36] LABS: ANION GAP 10.4 mmol/L (8-16); CALCIUM 9.3 mg/dL (8.5-10.1); CARBON DIOXIDE 34.6 mmol/L (21.0-32.0); CREATININE - SERUM 1.4 mg/dL (0.6-1.3)
[2018-06-17 06:14] VITALS: BP 117/59
[2018-06-17] MEDS ORDERED: MAG-OX 400 MG400 MG PO (07:26)
[2018-06-17] MEDS ORDERED: Bumex PO (07:26)
[2018-06-17] MEDS ORDERED: ALDACTONE25 MG PO (07:28)
[2018-06-17] MEDS ORDERED: NITROQUICK0.4 MG SL (07:28)
[2018-06-17] MEDS ORDERED: K-TAB10 MEQ PO (07:30)
--- NOTE | 2018-06-17 08:00 | NUR ---
PT RESTING IN BED. NO SIGNS OF DISTRESS. IV TO LEFT FORARM PATENT NO REDNESS OR TENDERNESS. DENIES ANY NEED AT THIS TIME. CALL LIGHT IN REACH. BED LOW POSITION. NO FAMILY AT BEDSIDE.
[2018-06-17 08:12] VITALS: BP 116/44
--- NOTE | 2018-06-17 08:55 | MORECARE ---
CASE MANAGEMENT DISCHARGE SUMMARY PATIENT: SABIHA POP UNIT: [id number] ADM DATE: 06/14/18 AGE: 72 : 43 SEX: F ROOM/BED: D.2212 AUTHOR: REVA NUNES PHYSICIAN: REFERRING PHYSICIAN: JULIO CHAMBERS MD DATE OF SERVICE: 06/17/18 Discharge Plan Patient Name: SABIHA POP Facility: [facility]:[place] : 1945 Planned Disposition: Home Anticipated Discharge Date: 06/17/18 Discharge Date: Expected LOS: 3 Initial Reviewer: [email or web address] Initial Review Date: 06/16/2018 Generated: 06/17/18 9:55 am Comments DCP- Discharge Planning Updated by [email or web address]: Shelley Huntley on 06/17/18 7:[address] Patient Name: SABIHA POP Encounter No: [id number] : 1945 Primary Insurance: [employer] MEDICARE SOLUTIONS Anticipated DC Date: 06-17-2018 Planned Disposition: Home External Planned Provider: : DCP follow-up note: Patient and family in agreement with discharge plan. IMM was given and explained 06/16/18 No changes to plan. Case management will follow and assist as needed. Shelley Huntley DCP- Discharge Planning Updated by [email or web address]: Celena Tate on 06/16/18 4:[address] Patient Name: SABHIA POP Admission Status: ER Accout number: [id number] Admission Date: 06-14-2018 : 1945 Admission Diagnosis: Attending: JULIO CHAMBERS Current LOS: 2 Anticipated DC Date: 06-17-2018 Planned Disposition: Home Primary Insurance: [facility] MEDICARE SOLUTIONS Discharge Planning Comments: CM MET WITH PATIENT REGARDING D/C NEEDS AND PLANS. PATIENT STATED SHE LIVES WITH HER BROTHER (CHRIS) AND HIS . PATIENT STATED SHE HAS A RAMP TO ENTER HER HOME AND NO STAIRS INSIDE. PATIENTS BROTHER WILL DRIVE HER HOME AT DISCHARGE. PATIENT STATED SHE IS INDEPENDENT WITH HER CARE AND HAS A CANE, GLUCOMETER, AND GRAB BARS AT HER HOME. PATIENTS PCP IS DR. CHAMBERS AND PAHRMACY IS [facility]. PATIENT REFUSED HOME HEALTH. CM WILL CONTINUE TO FOLLOW PATIENT WITH D/C NEEDS AND PLANS. [facility] CHRIS NOLAN (BROTHER) [phone] OR [phone] Industrial Hygiene Manager: Celena Tate DCPIA - Discharge Planning Initial Assessment Updated by [email or web address]: Celena Tate on 06/16/18 5:37 pm * Is the patient Alert and Oriented? Yes * How many steps to enter\exit or inside your home? RAMP * PCP DR. CHAMBERS * [facility] * Preadmission Environment Home with Family * ADLs Independent * Equipment Cane Glucometer Grab Bars * List name and contact numbers for known caregivers / representatives who currently or will assist patient after discharge: CHRIS NOLAN (BROTHER) [phone] CELL [phone] * Verbal permission to speak to the caregivers and representatives has been obtained from the patient. Yes * Community resources currently utilized None * Additional services required to return to the preadmission environment? Yes * Can the patient safely return to the preadmission environment? Yes * Has this patient been hospitalized within the prior 30 days at any hospital? No Coverage Notice Reviewer: [email or web address] - Celena Tate Notice Issued Date-Time: 06/16/2018 17:32 Notice Type: IM Discharge Notice Notice Delivered To: Patient Relationship to Patient: Surfacing Machine Operator Name: Delivery Method: HAND - Hand Delivered Azeb Days: Prior Verbal Notification: Recipient Understood Notice: Yes Recipient Signature: Yes Med Rec Note Co-signed by Attending: Coverage Notice Comment: Last DP export: 06/16/18 4:47 p Patient Name: SABIHA POP Page 28151 at 0855 All edits/amendments must be made on the electronic document DICTATION DATE: 06/17/18854 INTEGRITY ENGINEER: JOHNIE 06/17/18854 RPT#: [id number] DC DATE: STATUS: ADM IN [facility] [address] [place] [address] END OF REPORT
--- NOTE | 2018-06-17 10:38 | NUR ---
DISCHARGE INSTRUCTIONS GIVEN. SEEMS TO UNDERSTAND INSTRUCTIOSN. IV OUT TIP INTACT. NO SIGNS OF DISTRESS. LEFT WITH HOSPTIAL STAFF TO PERSONAL RIDE TO GO HOME WITH FAMILY MEMEBER.
--- NOTE | 2018-06-24 08:05 | MORECARE ---
CASE MANAGEMENT DISCHARGE SUMMARY PATIENT: SABIHA POP UNIT: [id number] ADM DATE: 06/14/18 AGE: 72 : 43 SEX: F ROOM/BED: D.2212 AUTHOR: DESDOC PHYSICIAN: REFERRING PHYSICIAN: JULIO CHAMBERS MD DATE OF SERVICE: 06/24/18 Discharge Plan Patient Name: SABIHA POP Facility: [facility]:[place] : 1945 Planned Disposition: Home Anticipated Discharge Date: 06/17/18 Discharge Date: 06/17/2018 Expected LOS: 3 Initial Reviewer: [email or web address] Initial Review Date: 06/16/2018 Generated: 06/24/18 9:04 am Comments DCP- Discharge Planning Updated by [email or web address]: Shelley Huntley on 06/17/18 7:[address] Patient Name: SABIHA POP Encounter No: [id number] : 1945 Primary Insurance: [employer] MEDICARE SOLUTIONS Anticipated DC Date: 06-17-2018 Planned Disposition: Home External Planned Provider: : DCP follow-up note: Patient and family in agreement with discharge plan. IMM was given and explained 06/16/18 No changes to plan. Case management will follow and assist as needed. Shelley Huntley DCP- Discharge Planning Updated by [email or web address]: Celena Tate on 06/16/18 4:[address] Patient Name: SABIHA POP Admission Status: ER Accout number: [id number] Admission Date: 06-14-2018 : 1945 Admission Diagnosis: Attending: JULIO CHAMBERS Current LOS: 2 Anticipated DC Date: 06-17-2018 Planned Disposition: Home Primary Insurance: [facility] MEDICARE SOLUTIONS Discharge Planning Comments: CM MET WITH PATIENT REGARDING D/C NEEDS AND PLANS. PATIENT STATED SHE LIVES WITH HER BROTHER (CHRIS) AND HIS . PATIENT STATED SHE HAS A RAMP TO ENTER HER HOME AND NO STAIRS INSIDE. PATIENTS BROTHER WILL DRIVE HER HOME AT DISCHARGE. PATIENT STATED SHE IS INDEPENDENT WITH HER CARE AND HAS A CANE, GLUCOMETER, AND GRAB BARS AT HER HOME. PATIENTS PCP IS DR. CHAMBERS AND PAHRMACY IS [facility]. PATIENT REFUSED HOME HEALTH. CM WILL CONTINUE TO FOLLOW PATIENT WITH D/C NEEDS AND PLANS. PCP [facility] CHRIS NOLAN (BROTHER) [phone] OR [phone] Director Of Extension Work: Celena Tate DCPIA - Discharge Planning Initial Assessment Updated by [email or web address]: Celena Tate on 06/16/18 5:37 pm * Is the patient Alert and Oriented? Yes * How many steps to enter\exit or inside your home? RAMP * PCP DR. CHAMBERS * [facility]acy [facility] * Preadmission Environment Home with Family * ADLs Independent * Equipment Cane Glucometer Grab Bars * List name and contact numbers for known caregivers / representatives who currently or will assist patient after discharge: CHRIS NOLAN (BROTHER) [phone] CELL [phone] * Verbal permission to speak to the caregivers and representatives has been obtained from the patient. Yes * Community resources currently utilized None * Additional services required to return to the preadmission environment? Yes * Can the patient safely return to the preadmission environment? Yes * Has this patient been hospitalized within the prior 30 days at any hospital? No Coverage Notice Reviewer: [id number] - Celena Tate Notice Issued Date-Time: 06/16/2018 17:32 Notice Type: IM Discharge Notice Notice Delivered To: Patient Relationship to Patient: Dye Weigher Helper Name: Delivery Method: HAND - Hand Delivered Azeb Days: Prior Verbal Notification: Recipient Understood Notice: Yes Recipient Signature: Yes Med Rec Note Co-signed by Attending: Coverage Notice Comment: Last DP export: 06/17/18 7:55 a Patient Name: SABIHA POP Page [id number] at 0805 All edits/amendments must be made on the electronic document DICTATION DATE: 06/24/18803 BRAILLE TEACHER: JOHNIE 06/24/18803 RPT#: [id number] DC DATE:06/17/18 STATUS: DIS IN [facility] [address] [place] [address] END OF REPORT
== END 2018-06-17 10:41 | disposition home or self-care (01) | DRG 293 ==
LOC: D.ER 21:39 → OBSVTIME 06-13 00:21 → D.MS 06-13 00:21
PROVIDERS: Family Medicine; ADMIT Family Medicine
DX: I11.0 Hypertensive heart disease with heart failure (principal); I50.9 Heart failure, unspecified; I43 Cardiomyopathy in diseases classified elsewhere; E11.9 Type 2 diabetes mellitus without complications

== ENCOUNTER → 2018-12-07 10:21 | Outpatient (CLI) | payer MEDICARE ==
[2018-06-15 13:33] VITALS: BMI 35.5
--- NOTE | ~2018-12-07 | EC ---
PATIENT:SABIHA POP DATE OF SERVICE: 12/07/18 SEX: F MEDICAL RECORD: [id number] DATE OF : 41 LOCATION:[facility] AGE OF PATIENT: 73 ADMISSION DATE: 12/07/18 REFERRING PHYSICIAN: INTERPRETING PHYSICIAN: PHIL MIRANDA MD ECHOCARDIOGRAM REPORT ECHO CHARGES 4 ECHO COMPLETE Date: 12/07/18 CLINICAL DIAGNOSIS: CARDIOMYOPATHY/SVT H/O HTN ECHOCARDIOGRAPHIC MEASUREMENTS (adult normal given) AC root (d.<3.7cm) 3.3 cm LV Septum d (<1.2 cm> 1.4 cm Valve Excursion 2.0 cm LV Septum (systole) 2.1 cm Left Atria (s.<4.0cm> 4.8 cm LVPW d(<1.2cm) 1.3 cm RV (d.<2.3cm) 2.3 cm LVPW (sytole) 2.1 cm LV diastole(<5.6CM) 6.3 cm MV E-F(>70mm/sec) cm LV systole 4.0 cm LVOT Diameter 1.9 cm MV exc.(>10mm) cm Est.ejection fraction (50-75%) % DOPPLER: LVIT cm/sec A 109 cm/sec E 56.0 cm/sec LA cm/sec RVSP 28.4 mmHg LVOT 93.0 cm/sec AOP1/2T m/s Asc. Ao 186 cm/sec RVOT 55.0 cm/sec RA cm/sec PA 86.0 cm/sec AV Gradient Peak 14.0 mmHg AV Mean 7.5 mmHg AV Area 1.6 cm MV Gradient Peak 6.5 mmHg MV Mean 1.7 mmHg MV Area cm COMMENTS: OP - HC Ultrasonic Tester: Juanita SANDERSON NIKKI Condominium Association Manager: 3 Dr. Samano TAPE# PACS Pericardial Effusion N DATE OF SERVICE: 12/07/2018 Adequate 2-D echo, color-flow and spectral Doppler, and M-mode. LVH is present. LV internal dimensions are normal. LV is globally hypokinetic with reduced EF. Estimated EF is 30% to 35%. Aortic valve sclerosis without stenosis by Doppler interrogation. Left atrium is dilated at 4.8 cm. Mitral valve shows no prolapse. Moderate MR. Right-sided chambers are grossly normal. Mild TR. ECHOCARDIOGRAM REPORT [id number] SABIHA OPP TRANSINT:[id number] Voice Confirmation ID: [id number] DOCUMENT ID: [id number] PHIL MIRANDA MD CC: [id number] DICTATION DATE: 12/14/18 1244 INTERNATIONAL ACCOUNT MANAGER: 12/14/18 1255 DEP CLI 12/07/18 [place] [id number] [place] [id number]
[~2018-12-07 10:21] MED LIST changes: +ALDACTONE25 MG PO; +Bumex PO; +K-TAB10 MEQ PO; +MAG-OX 400 MG400 MG PO; +NITROQUICK0.4 MG SL
== END | disposition home or self-care (01) ==
LOC: D.HCCARDIO 10:21
PROVIDERS: ATTEND Internal Medicine Interventional Cardiology
DX: I42.9 Cardiomyopathy, unspecified (principal)

== ENCOUNTER 2019-01-04 16:48 | Emergency (ER) | payer MEDICARE ==
[~2019-01-04] VITALS: Ht 172.7 cm; Wt 104.5 kg
[2019-01-04 17:06] VITALS: Ht 172.7 cm; Wt 104.5 kg
[2019-01-04] MEDS ORDERED: CARDURA4 MG PO (17:12)
[2019-01-04] MEDS ORDERED: GEMFIBROZIL600 MG PO (17:13)
[2019-01-04 18:36] LABS: BASOPHILS 0.5 % (0-2); EOSINOPHILS 4.4 % (0-7); HEMATOCRIT 33.7 % (36.0-48.0); HEMOGLOBIN 11.7 g/dL (12-16); IMMATURE GRANULOCYTES 0.5 % (0-5); LYMPHOCYTES 32.1 % (15-50); MCH 32.7 pg (26.0-34.0); MCHC 34.7 g/dL (31.0-37.0); MCV 94.1 fL (80.0-100.0); MEAN PLATELET VOLUME 9.9 fL (7.4-10.4); MONOCYTES 6.6 % (2-11); NEUTROPHILS 55.9 % (40-80); PLATELET COUNT 245 10x3/uL (130-400); RBC 3.58 10x6/uL (4.00-5.40); RDW 13.6 % (11.5-14.5); WBC 8.2 10x3/uL (4.8-10.8)
[2019-01-04 18:45] LABS: INR 0.95 (0.85-1.17); PROTIME 12.2 SECONDS (11.6-15.0)
[2019-01-04 18:46] LABS: APTT 25.6 SECONDS (22.8-39.4)
[2019-01-04 18:55] LABS: ALBUMIN 3.5 g/dL (3.4-5.0); ALKALINE PHOSPHATASE 44 U/L (46-116); ALT (SGPT) 25 U/L (10-68); BILIRUBIN - TOTAL 0.27 mg/dL (0.2-1.3); CALC OSMOLALITY 283 mosm/kg (275-300); CARBON DIOXIDE 24.5 mmol/L (21.0-32.0); CHLORIDE - SERUM 101 mmol/L (98-107); CREATININE - SERUM 1.5 mg/dL (0.6-1.3); GLUCOSE 177 mg/dL (74-106); POTASSIUM - SERUM 4.4 mmol/L (3.5-5.1); PROTEIN - SERUM 7.4 g/dL (6.4-8.2); SODIUM 137 mmol/L (136-145); UREA NITROGEN 28 mg/dL (7-18); eGFR NON AFRICAN AMERICAN 36 mL/min (90-120)
[2019-01-04 19:09] LABS: CKMB 2.7 U/L (0.0-3.6); CREATINE KINASE 55 UL (21-215); MAGNESIUM - SERUM 1.7 mg/dL (1.8-2.4); TROPONIN-I < 0.017 ng/mL (0.000-0.060)
[2019-01-04] MEDS ORDERED: BACLOFEN20 M1 PO (20:11)
[2019-01-04 20:32] VITALS: BP 122/85
== END 2019-01-04 20:33 | disposition home or self-care (01) ==
LOC: D.ER 16:48
PROVIDERS: Family Medicine
DX: R20.2 Paresthesia of skin (principal); M79.601 Pain in right arm

== ENCOUNTER 2019-09-21 11:13 | Outpatient (CLI) | payer MEDICARE ==
[~2019-09-21] VITALS: Ht 172.7 cm; Wt 105.5 kg
--- NOTE | ~2019-09-21 | HEMODYNAMI ---
PATIENT:SABIHA POP MEDICAL RECORD: [id number] : 41 LOCATION:[facility] ADMISSION DATE: 09/21/19 Generatedon:09/21/201915:41 Patient name: SABIHA POP Patient #: [id number] : 1945 Date of study: 09/21/2019 Page: Of Hemodynamic Procedure Report Patient Data Patient Demographics Procedure consent was obtained First Name: SABIHA Gender: Female Last Name: DONN : 1945 Middle Initial: ALLAN Age: 74 year(s) Patient #: [id number] Race: SSN: [id number] Additional ID: [id number] Contact details Address: [place] [address] State: [place] City: [place] Zip code: [address] Past Medical History History of disease Date Diagnosis Comments CAD Allergies Allergen Reaction Date Comments Reported Other allergy 01/24/2015 steroid shots Other allergy 02/19/2017 Steriodal muscle blockers, methylprednisolone Other allergy 03/03/2018 methylprednisolone, steriodal muscle blockers Admission Admission Data Admission Date: 09/21/2019 Admission Time: 11:13 Arrival Date: 09/21/2019 Arrival Time: 0:00 Admit Source: Other Insurance Payor: Medicare [facility] #: [id number] Height (in.): 67.72 BSA: 2.17 (m2) Height (cm.): 172 BMI: 35.49 (kg/m2) Weight (lbs.): 231.49 Weight (kg.): 105 Lab Results Lab Result Date: 09/21/2019 Lab Result Time: 0:00 Biochemistry Name Units Result Min Max BUN mg/dl 40 --(----)-* 7 18 Creatinine mg/dl 1.9 --(----)-* 0.6 1.3 eGFR ml/min 27 *-(----)-- 90 120 NONAFRICAN CBC Name Units Result Min Max Hemoglobin g/dl 11.8 *-(----)-- 13.5 17.5 Procedure Procedure Types Cath Procedure Diagnostic Procedure [facility] w/Coronaries Sedation Charges Moderate Sedation up to 30 minutes PCI Procedure Coronary Stent Coronary Stent Initial Hemochron ACT Test Procedure Description Procedure Date Procedure Date: 09/21/2019 Procedure Start Time: 15:11 Procedure End Time: 15:37 Procedure Staff Name Function Ziad Madrigal MD Performing Physician Melissa Givens RT Monitor Hansa Liriano RN Nurse Alison Foote RT Scrub Procedure Data Cath Procedure Fluoroscopy Diagnostic fluoroscopy Total fluoroscopy Time: 7.2 time: 7.2 min min Diagnostic fluoroscopy Total fluoroscopy dose: dose: 1506 mGy 1506 mGy Contrast Material Contrast Material Type Amount (ml) Isovue 300 111 Entry Location Entry Primary Successful Side Size Upsize Upsize Entry Closure Succes sful Closure Location (Fr) 1 (Fr) 2 (Fr) Remarks Device Remarks Femoral Right 5 Fr 6 Fr Exoseal artery Short Estimated blood loss: 10 ml Diagnostic catheters Device Type Used For End Catheter Placement MULTIPACK JL 4.0 5Fr Procedure catheter MULTIPACK 3DRC 5Fr Procedure catheter MULTIPACK Pigtail 5 Fr Ventriculography catheter Procedure Complications No complications Procedure Medications Medication Administration Route Dosage 0.9% NaCl I.V. 100 ml/hr Oxygen etCO2 Nasal cannula 2 l/min Lidocaine 2% added to field 20 Heparin Flush Bag added to field 2 bags (1000units/500ml NS) Versed I.V. 2 mg Fentanyl I.V. 50 mcg Fentanyl I.V. 50 mcg Heparin Bolus I.V. 5000 units Hemodynamics Rest BSA: 2.17 (m2) HGB: 11.8 (g/dl) O2 Consumption: Estimated: 201.31 (ml/min) O2 Co nsumption indexed: Estimated:92.77 (ml/min/m) Heart Rate: 75 (bpm) Pressure Samples Time Site Value (mmHg) Purpose Heart Use Rate(bpm) 15:16 LV 139/13,15 Snapshot 77 Gradients Valve Time Site Site Mean SEP/DFP Peak To Heart Use 1 2 (mmHg) (sec/min) Peak Rate (mmHg) (bpm) Aortic 15:17 LV AO 80 Snapshots Pre Cath Intra NCS Post Cath Vital Signs Time Heart Resp SPO2 etCO2 NIBP (mmHg) Rhythm Pain Sedation Rate (ipm) (%) (mmHg) Status Level (bpm) 14:58:10 74 11 98 11.9 178/76(140) NSR 0 (11) 10(A) , No pain 15:02:36 78 18 96 27.7 168/83(130) NSR 0 (11) 10(A) , No pain 15:06:58 77 17 98 33.7 128/58(93) NSR 0 (11) 10(A) , No pain 15:11:16 75 19 96 20.9 142/73(108) NSR 0 (11) 10(A) , No pain 15:15:38 73 15 95 20.2 149/69(118) NSR 0 (11) 10(A) , No pain 15:20:07 74 15 95 28.4 150/71(111) NSR 0 (11) 9(A) , No pain 15:24:23 80 16 95 13 127/62(87) NSR 0 (11) 9(A) , No pain 15:28:41 78 16 95 16.4 146/71(114) NSR 0 (11) 9(A) , No pain 15:33:09 78 16 96 33.7 151/69(101) NSR 0 (11) 10(A) , No pain 15:37:27 76 17 95 33.7 138/67(109) NSR 0 (11) 10(A) , No pain Medications Time Medication Route Dose Verified Delivered Reason Notes Effectiveness by by 14:59:51 0.9% NaCl I.V. 100 Zaid Hansa used for ml/hr RohanLeo Liriano procedure MD ALFONSO 14:59:57 Oxygen etCO2 2 Zaid Hansa used for Nasal l/min Rohan Heri procedure cannula MD ALF[place] 15:00:02 Lidocaine 2% added 20ml Zaid Mar for local to vial [facility] anesthetic field MD HELTON 15:00:06 Heparin Flush added 2 Zaid Morrisory [facility] ([facility] field MD [place] NS) 15:04:03 Fentanyl I.V. 50 Zaid Hansa for sedation mcg [facility] Leo Liriano MD, RN 15:04:54 Versed I.V. 2 mg Zaid Hansa for sedation [facility] Liriano MD, RN 15:09:44 Fentanyl I.V. 50 Zaid Hansa for sedation mcg [facility] Leo Liriano MD RN 15:18:50 Heparin Bolus I.V. 5000 Zaid Santo for verif ied units [facility] Leo Liriano anticoagulation with Dr. HELTON RN [facility] Procedure Log Time Note 14:31:22 Informed consent obtained and on chart 14:47:24 Procedure Status Elective Heart Cath (OP). 14:48:42 Hansa Liriano RN sent for patient. Start room use. 14:48:44 Time tracking: Regular hours (M-F 7:00 - 5:00) 14:48:52 Plan of Care:Hemodynamics will remain stable., Cardiac rhythm will remain stable., Comfort level will be maintained., Respiratory function will remain adequate., Patient/ family verbilizes understanding of procedure., Procedure tolerated without complication., Recovers from procedure without complications.. 14:51:00 Warm blankets applied, and deysi hugger turned on for patient comfort. 14:51:01 Correct patient and procedure confirmed by team. 14:51:02 ECG and BP/O2 sat monitors applied to patient. 14:51:15 H&P Date Dictated: 09/09/2019 Within 30 days and on chart., H&P Addendum completed by physician on day of procedure. (MUST COMPLETE FOR ALL OUTPATIENTS). 14:51:17 Pre-procedure instructions explained to patient. 14:51:22 Family unavailable. 14:51:24 Patient NPO since Midnight. 14:52:11 Snore? No 14:52:12 Sleep apnea? No 14:52:15 Patient diabetic? Yes. 14:52:17 If diabetic: On Metformin? Yes 14:52:27 If on Metformin: Last Dose? 09/19/2019 14:52:32 Airway obstruction? No ? 14:52:36 Dentures? No ? 14:52:38 Is patient on blood thinner?Yes 14:52:41 ACC The patient was administered the following blood thiners within the last 24 hours: ACCPlavix 14:52:45 Is the patient allergic to Iodine/contrast media? No. 14:52:58 Patient pain scale 0/10 ?. 14:53:09 IV patent on arrival in right antecubital with 0.9% NaCl at [facility]. 14:53:13 Lab results completed and on chart. 14:54:03 Lab Result : BUN 40 mg/dl 14:54:03 Lab Result : Creatinine 1.9 mg/dl 14:54:03 Lab Result : eGFR NONAFRICAN 27 ml/min 14:54:03 Lab Result : Hemoglobin 11.8 g/dl 14:54:35 Right Radial & Right Groin area was prepped with chlora-prep and draped in sterile fashion 14:54:37 Alarms reviewed by R. N. 14:54:37 Sharps counted by scrub and verified by R.N. 14:55:58 Admit Source: Other 14:56:00 Arrival Date: 09/21/2019 12:00:00 AM 14:56:14 Insurance Payor : Medicare 14:56:20 Patient Height : 67.72 inches 14:56:23 Patient Weight : 231.49 lbs 14:56:48 Vital chart was started 14:58:56 Baseline sample Acquired. 14:59:02 Rhythm: sinus rhythm 14:59:03 Full Disclosure recording started 14:59:51 0.9% NaCl 100 ml/hr I.V. was administered by Hansa Liriano RN; used for procedure; Verbal order read back and verified. 14:59:57 Oxygen 2 l/min etCO2 Nasal cannula was administered by Hansa Liriano RN; used for procedure; Verbal order read back and verified. 15:00:02 Lidocaine 2% 20ml vial added to field was administered by Zaid Madrigal MD; for local anesthetic; Verbal order read back and verified. 15:00:06 Heparin Flush Bag (1000units/500ml NS) 2 bags added to field was administered by Zaid Madrigal MD; used for procedure; Verbal order read back and verified. 15:03:00 Physician arrived 15:03:01 --------ALL STOP TIME OUT------ 15:03:04 Final Timeout: patient, procedure, and site verified with staff and physician. All members of the team are in agreement. 15:03:06 Right groin site verified by team. 15:03:11 Fire Safety Assessment: A--An alcohol-based skin anteseptic being used preoperatively., C--Open oxygen or nitrous oxide is being used., D--An ESU, laser, or fiber-optic light is being used. 15:03:15 Physical assessment completed. ASA score P 3 - A patient with severe systemic disease as per Zaid Madrigal MD. 15:03:19 3b) 30-44 Moderately reduced kidney function. 15:03:22 Maximum allowable contrast dose (3.7 X eGFR X 0.75)75 ml. 15:03:26 Sedation plan: IV Moderate Sedation Medication:Versed, Fentanyl 15:03:32 Use device set Femoral Dx 15:04:03 Fentanyl 50 mcg I.V. was administered by Hansa Liriano RN; for sedation; Verbal order read back and verified. 15:04:54 Versed 2 mg I.V. was administered by Hansa Liriano RN; for sedation; Verbal order read back and verified. 15:09:33 Procedure started. 15:09:44 Fentanyl 50 mcg I.V. was administered by Hansa Liriano RN; for sedation; Verbal order read back and verified. 15:09:52 ACIST Syringe (06448) opened to sterile field. 15:09:52 Bag Decanter (2002S) opened to sterile field. 15:09:53 Medline Cath Pack ([id number]) opened to sterile field. 15:09:54 ACIST Hand Control (83946) opened to sterile field. 15:09:55 ACIST Manifold (29791) opened to sterile field. 15:09:55 DIAGNOSTIC Multipack 5Fr catheter set (EP2587) opened to sterile field. 15:09:57 Tegaderm 4 x 4 (1626W) opened to sterile field. 15:09:59 SHEATH 5FR [place]conning (VND622) opened to sterile field. 15:10:00 EMERALD Guide Wire (525-961) opened to sterile field. 15:10:15 Zero performed for pressure channel P1 15:11:09 Local anesthetic to right femoral artery with Lidocaine 2% by Zaid Madrigal MD.INITIAL ACCESS ONLY 15:12:01 A 5 Fr sheath was inserted into the Right Femoral artery 15:12:06 J wire advanced. 15:16:57 A MULTIPACK JL 4.0 5Fr catheter was advanced over the wire and used for Procedure. 15:16:59 LCA angiography performed. 15:17:04 Catheter removed. 15:17:11 A MULTIPACK 3DRC 5Fr catheter was advanced over the wire and used for Procedure. 15:17:14 RCA angiography performed. 15:17:15 Catheter removed. 15:17:28 A MULTIPACK Pigtail 5 Fr catheter was advanced over the wire and used for Ventriculography. 15:17:36 EF : 50 % 15:17:51 Catheter removed. 15:18:37 INFLATOR Merit BasixCompak (AO8408) opened to sterile field. 15:18:38 SHEATH 6FR [place] (TGM332) opened to sterile field. 15:18:38 WHISPER 300cm guide wire ([id number]) opened to sterile field. 15:18:39 GUIDE 6FR XBLAD 3.5 catheter ([id number]) opened to sterile field. 15:18:44 Proceeding to intervention. 15:18:50 Heparin Bolus 5000 units I.V. was administered by Hansa Liriano RN; for anticoagulation; verified with Dr. Samano Verbal order read back and verified. 15:18:52 Sheath upsized to a 6 Fr Short. 15:19:08 6 Fr xblad3.5 guide catheter was inserted over the wire 15:19:13 whsper wire advanced. 15:26:28 Inflate balloon Inflation number: 1 A EMERGE OTW 2.0 x 12 balloon ([id number]) was prepped and advanced across the Prox CX 99, then inflated to 12 FITO for 0:30 (min:sec) . 15:26:52 Inflation number: 2 The EMERGE OTW 2.0 x 12 balloon ([id number]) was reinflated across the Prox CX , to 0 FITO for 0:12 (min:sec) . 15:27:37 Inflation number: 3 The EMERGE OTW 2.0 x 12 balloon ([id number]) was reinflated across the Prox CX , to 12 FITO for 0:12 (min:sec) . 15:28:27 Balloon removed over the wire. 15:31:54 Place stent Inflation Number: 4 A NILESH OTW 3.5 x 12 stent ([id number]) was prepped and advanced across the Prox CX 99. The stent was deployed at 14 FITO for 0:16 (min:sec) . 15:33:33 EXOSEAL 6Fr (EX600) opened to sterile field. 15:33:41 Wire removed. 15:33:42 Guide catheter removed. 15:33:56 Sheath removed intact; hemostasis achieved with Exoseal to the Right Femoral artery. 15:33:59 Procedure ended.(Physican Out) 15:34:17 Fluoroscopy time 07.20 minutes. 15:34:27 Fluoroscopy dose: 1506 mGy 15:34:27 Flurop Dose total: 1506 15:34:43 Dose Area Product 78446 mGy/cm. 15:34:47 Contrast amount:Isovue 300 111ml. 15:34:50 Maximum allowable dose exceeded? Yes. 15:34:59 Post-op/insertion site Right Femoral artery dressed using a 4 x 4 and Tegaderm. 15:35:02 Post Procedure Pulses reassessed and unchanged 15:35:19 Post-procedure physical assessment completed. ASA score P 3 - A patient with severe systemic disease as per Zaid Madrigal MD. 15:35:36 Post procedure rhythm: sinus rhythm 15:35:40 Estimated blood loss: 10 ml 15:35:58 Post procedure instruction explained to patient.Patient verbalizes understanding. 15:36:49 ACT drawn and resulted at 180 seconds. (normal therapeutic range 180-240 seconds). 15:37:01 Procedure type changed to Cath procedure, Diagnostic procedure, LHC, C w/Coronaries, Sedation Charges, Moderate Sedation up to 30 minutes, PCI procedure, Coronary Stent, Coronary Stent Initial, Hemochron ACT Test 15:37:04 Procedure and supply charges have been captured, reviewed, submitted and are correct. 15:37:28 Procedure Complication : No complications 15:37:31 Vital chart was stopped 15:37:34 [facility] Findings: MVD- PCI performed (see procedure note) 15:37:40 Report given to Pre/Post Procedure Room. 15:37:43 Patient transfered to Pre/Post Procedure Room with Stretcher. 15:37:45 Procedure ended. 15:37:45 Full Disclosure recording stopped 15:37:51 End room use (Document Last) 15:40:30 End room use (Document Last) 15:41:09 End room use (Document Last) Intervention Summary Intervention Notes Time ActionType Lesion and Equipment Action# Pressure Duration Attributes Used 15:26:28 Inflate Prox CX EMERGE OTW 1 12 00:30 balloon 2.0 x 12 balloon ([id number]) 15:26:52 Reinflate Prox CX EMERGE OTW 2 0 00:13 balloon 2.0 x 12 balloon ([id number]) 15:27:37 Reinflate Prox CX EMERGE OTW 3 12 00:12 balloon 2.0 x 12 balloon ([id number]) 15:31:54 Place stent Prox CX NILESH OTW 3.5 4 14 00:16 x 12 stent ([id number]) Device Usage Item Name Manufacture Quantity Catalog Number [facility] Lot# / Charge Number Stock Stock Serial# Code ACIST Syringe Acist 1 82063 964564 770537 537353 20 (20801) Medical Systems Inc Bag Decanter Microtek 1 041125 00586 039688 5 () Medical Inc. Medline Cath Medline 1 [id number] 678003 34695 165872 5 Pack ([id number]) ACIST Hand Acist 1 01931 107191 265206 997632 5 Control Medical (98291) Systems Inc ACIST Acist 1 45188 875912 391815 044000 5 Manifold Medical (73928) Systems Inc DIAGNOSTIC Cardinal 1 TN3153 549259 75550 741328 30 Multipack 5Fr Health catheter set (UX4438) Tegaderm 4 x 3M 1 1626W 335982 218728 912285 5 4 (1626W) SHEATH 5FR Terumo 1 NQQ301 635751 657841 699168 5 Pinconning (XSV283) EMERALD Guide Cardinal 1 502-455 878168 425997 889922 5 Wire Health (502-455) MULTIPACK JL Cardinal 1 521679 5 4.0 5Fr Health catheter MULTIPACK Cardinal 1 954244 5 3DRC 5Fr Health catheter MULTIPACK Cardinal 1 574812 5 Pigtail 5 Fr Health catheter INFLATOR Merit 1 UF2389 008376 663897 017400 15 [facility] Medical BasixCompak (WE2689) SHEATH 6FR Terumo 1 MAT141 917895 405868 173752 40 [place] (UII735) WHISPER 300cm Doe 1 [id number] 561312 862155 893576 5 guide wire Vascular ([id number]) GUIDE 6FR Cardinal 1 [id number] 711804 183980 547078 10 XBLAD 3.5 Health catheter (85679477) EMERGE OTW Kelley 1 [id number] 787964 031163 689050 5 [id number] 2.0 x 12 Scientific balloon ([id number]) NILESH OTW 3.5 Medtronic 1 [id number] 653953 6393746 537804 5 [id number] x 12 stent ([id number]) EXOSEAL 6Fr Cardinal 1 EX600 585316 980088 665467 10 (EX600) Health Signature Audit Elizabeth Stage Time Signature Unsigned Intra-Procedure 09/21/2019 Melissa Givens 3:40:30 PM RT(R) Intra-Procedure 09/21/2019 Hansa Liriano 3:41:09 PM RN Intra-Procedure 09/21/2019 Zaid Kee 3:41:34 PM Leo HELTON Signatures Performing Physician : Signature : Zaid Madrigal MD Date : Time : Monitor : Melissa Givens Signature : RT Date : Time : Nurse : Hansa Liriano RN Signature : Date : Time : [place] [id number] [facility] [place] [address]
[~2019-09-21 11:13] MED LIST changes: +BACLOFEN20 M1 PO
[2019-09-21] MEDS ORDERED: BUMEX2 MG PO (11:32)
[2019-09-21] MEDS ORDERED: STARLIX120 MG PO (11:32)
[2019-09-21] MEDS ORDERED: ALDACTONE25 MG PO (11:33)
[2019-09-21 12:02] VITALS: BP 163/59; Ht 172.7 cm; Wt 105.5 kg
[2019-09-21 12:18] LABS: ALT (SGPT) 26 U/L (10-68); CALC OSMOLALITY 286 mosm/kg (275-300); CALCIUM 9.6 mg/dL (8.5-10.1); CARBON DIOXIDE 25.7 mmol/L (21.0-32.0); CHLORIDE - SERUM 99 mmol/L (98-107); CHOLESTEROL, TOTAL 257 mg/dL (0-200); CREATININE - SERUM 1.9 mg/dL (0.6-1.3); HDL CHOLESTEROL 37 mg/dL (32-96); POTASSIUM - SERUM 5.5 mmol/L (3.5-5.1); SODIUM 134 mmol/L (136-145); TRIGLYCERIDE 470 mg/dL (30-200); UREA NITROGEN 40 mg/dL (7-18); eGFR NON AFRICAN AMERICAN 27 mL/min (90-120)
[2019-09-21 12:23] LABS: GLUCOSE 256 mg/dL (74-106)
[2019-09-21 12:24] LABS: BASOPHILS 0.6 % (0-2); EOSINOPHILS 3.4 % (0-7); HEMATOCRIT 35.3 % (36.0-48.0); HEMOGLOBIN 11.8 g/dL (12-16); IMMATURE GRANULOCYTES 0.6 % (0-5); MCH 32.9 pg (26.0-34.0); MCHC 33.4 g/dL (31.0-37.0); MCV 98.3 fL (80.0-100.0); MEAN PLATELET VOLUME 9.8 fL (7.4-10.4); MONOCYTES 6.7 % (2-11); NEUTROPHILS 61.7 % (40-80); PLATELET COUNT 290 10x3/uL (130-400); RBC 3.59 10x6/uL (4.00-5.40); RDW 13.6 % (11.5-14.5)
--- NOTE | 2019-09-21 15:55 | NUR ---
PT RECEIVED VIA STRETCHER FROM SERVER SUPPORT TECHNICIAN FOR RECOVERY. PT AWAKE BUT DROWSY, SHE DENIES PAIN OR DISCOMFORT. IV PATENT INFUSING VIA ORDERS TO R ARM. PT PLACED ON CARDIAC MONITORS. HR NSR RATE 75, BP 143/65, RR 21, SAT 95 ON ROOM AIR. R GROIN DRESSING CDI NO S/S HEMATOMA OR SWELLING. LEG PINK AND WARM, PEDAL PULSES PALPABLE. CALL LIGHT IN REACH. PT INSTRUCTED TO KEEP HEAD ON PILLOW AND LEG STRAIGHT, SHE VERBALIZED UNDERSTANDING.
--- NOTE | 2019-09-21 16:15 | NUR ---
PT RESTING COMFORTABLY, DENIES PAIN OR DISCOMFORT. HR 76, BP 141/65, RR 20, SAT 92 ON ROOM AIR. R GROIN SOFT, DRESSING CDI NO S/S HEMATOMA OR BLEEDING NOTED. CALL LIGHT IN REACH. FAMILY MEMBER NOTIFIED OF PT CONDITION AND DISCHARGE INFORMATION PER PT REQUEST.
--- NOTE | 2019-09-21 17:00 | NUR ---
R GROIN SOFT, DRESSING REMAINS CDI NO S/S HEMATOMA NOTED. IV PATENT INFUSING VIA ORDERS. CALL LIGHT IN REACH. VSS
--- NOTE | 2019-09-21 17:28 | NUR ---
PT RESTING W EYES CLOSED. R GROIN SOFT, DRESSING REMAINS CDI NO S/S HEMATOMA NOTED. LEG PINK AND WARM. VSS. CALL LIGHT IN REACH
--- NOTE | 2019-09-21 18:00 | NUR ---
R GROIN SOFT, DRESSING CDI NO S/S HEMATOMA OR BLEEDING. HR 76, BP 119/57, SAT 97 ON ROOM AIR. SIPS OF SPRITE GIVEN PER REQUEST. PT DENIES PAIN OR NEEDS AT THIS TIME. CALL LIGHT REMAINS IN REACH
--- NOTE | 2019-09-21 18:38 | NUR ---
R GROIN SOFT, NO S/S HEMATOMA OR BLEEDING. DRESSING REMAINS CDI. HOB ELEVATED, SANDWICH TRAY SERVED. PT DENIES PAIN OR NEEDS, CALL LIGHT IN REACH
--- NOTE | 2019-09-21 19:02 | NUR ---
DISCHARGE INSTRUCTIONS REVIEWED W PT, SHE VERBALIZED UNDERSTANDING. PT IS ALREADY A DAILY PLAVIX TAKER SO SHE UNDERSTANDS CONTINUING THIS DAILY. R GROIN REMAINS SOFT, NO S/S HEMATOMA OR BLEEDING.
--- NOTE | 2019-09-21 19:16 | NUR ---
IV REMOVED W CATH INTACT. MONITORS REMOVED AND PT UP TO DRESS FOR DISCHARGE.
--- NOTE | 2019-09-21 19:21 | NUR ---
PT DISCHARGED VIA WC TO FAMILY WAITING IN PRIVATE VEHICLE. PT HAD ALL BELONGINGS AND DISCHARGE PAPERWORK IN HAND
--- NOTE | 2019-09-23 13:35 | OP ---
PATIENT NAME: SABIHA POP MEDICAL RECORD: [id number] :41 LOCATION:D.CAT ADMISSION DATE: SURGEON: PHIL MIRANDA MD DATE OF OPERATION: 09/21/2019 PROCEDURE: Left heart catheterization, selective coronary angiography, right femoral artery approach. CATHETERS: A 5-Ugandan sheath, 5/4 left and right Svetlana, 5/4 pig. The procedure was well tolerated. The patient returned to the guerrero, sheath removed. ExoSeal device placed. FINDINGS: Left ventriculography in 30-degree ARAYA view shows mild global hypo with LV function only mild reduced estimated to 45%. CORONARY ANATOMY: LEFT MAIN: Left main is free of disease. LAD: LAD area of previous stent is widely patent. No evidence of post-anastomotic stenosis. CIRCUMFLEX: Has ostial stenosis, true ostial of 90% plus. RIGHT CORONARY ARTERY: Somewhat codominant system, free of disease. PLAN: Intervention of the circumflex momentarily. DESCRIPTION OF PROCEDURE: A 5-Ugandan sheath was exchanged for a 6-Ugandan sheath. XB LAD guiding catheter provided good guide catheter support followed by a 300 cm Whisper wire was placed across the tightly occluded circumflex ostial lesion down this portion of vessel. Pre-deployment balloon was a 2.0 x 12 Braxton balloon up to 14 atmospheres. Next, we deployed a 3.5 x 12 [place] drug-eluting stent up to 14 atmospheres for 45 seconds. There was some jailing, but no snow plowing of the stent to the LAD. Good SHEA flow. Marked resolution of the stenosis with circumflex. Sheath closed with ExoSeal device. Plavix was loaded in the lab. Heparin and Integrilin were used during the case. TRANSINT:[id number] Voice Confirmation ID: [id number] DOCUMENT ID: [id number] PHIL MIRANDA MD at 1335 CC: [id number] DICTATION DATE: 09/21/19 1540 REINFORCING STEEL WORKER WIRE MESH: 09/21/19 1625 DEP CLI 09/21/19 [facility] [address] [place] [address]
== END 2019-09-21 19:22 | disposition home or self-care (01) ==
LOC: D.CATH 11:13
PROVIDERS: ATTEND Internal Medicine Interventional Cardiology
DX: I25.119 Atherosclerotic heart disease of native coronary artery with unspecified angina pectoris (principal); I47.1 Supraventricular tachycardia; R07.9 Chest pain, unspecified; E78.5 Hyperlipidemia, unspecified; E11.9 Type 2 diabetes mellitus without complications; Z79.84 Long term (current) use of oral hypoglycemic drugs; I10 Essential (primary) hypertension
CPT/HCPCS: 93458; C9600

== ENCOUNTER 2019-12-09 20:09 | Observation (INO) | payer MEDICARE ==
[~2019-12-09] VITALS: Ht 172.7 cm; Wt 106.6 kg
[~2019-12-09 20:09] MED LIST changes: +STARLIX120 MG PO
[2019-12-09 20:43] LABS: BASOPHILS 0.6 % (0-2); EOSINOPHILS 3.6 % (0-7); HEMATOCRIT 31.8 % (36.0-48.0); HEMOGLOBIN 10.7 g/dL (12-16); IMMATURE GRANULOCYTES 0.7 % (0-5); LYMPHOCYTES 32.8 % (15-50); MCH 32.7 pg (26.0-34.0); MCHC 33.6 g/dL (31.0-37.0); MCV 97.2 fL (80.0-100.0); MEAN PLATELET VOLUME 9.3 fL (7.4-10.4); MONOCYTES 6.3 % (2-11); PLATELET COUNT 260 10x3/uL (130-400); RBC 3.27 10x6/uL (4.00-5.40); RDW 13.5 % (11.5-14.5); WBC 8.1 10x3/uL (4.8-10.8)
[2019-12-09 20:50] LABS: CALC OSMOLALITY 289 mosm/kg (275-300); CALCIUM 9.7 mg/dL (8.5-10.1); CARBON DIOXIDE 27.1 mmol/L (21.0-32.0); CHLORIDE - SERUM 100 mmol/L (98-107); CREATININE - SERUM 2.1 mg/dL (0.6-1.3); GLUCOSE 258 mg/dL (74-106); SODIUM 135 mmol/L (136-145); UREA NITROGEN 43 mg/dL (7-18); eGFR NON AFRICAN AMERICAN 24 mL/min (90-120)
[2019-12-09 20:54] VITALS: BP 144/59
[2019-12-09 20:54] LABS: APTT 27.6 SECONDS (22.8-39.4); INR 0.98 (0.85-1.17)
[2019-12-09 20:55] LABS: D-DIMER-QUANTITATIVE 1.71 ug/mLFEU (0.20-0.54)
[2019-12-09 21:00] VITALS: BP 108/51
[2019-12-09 21:03] LABS: ALBUMIN 3.6 g/dL (3.4-5.0); ALKALINE PHOSPHATASE 39 U/L (30-120); ALT (SGPT) 27 U/L (10-68); BILIRUBIN - TOTAL 0.35 mg/dL (0.2-1.3); MAGNESIUM - SERUM 1.6 mg/dL (1.8-2.4); PRO BNP 513 pg/mL (0-450); PROTEIN - SERUM 7.2 g/dL (6.4-8.2); TROPONIN-I < 0.017 ng/mL (0.000-0.060)
[2019-12-09 22:26] VITALS: BP 128/52
--- NOTE | 2019-12-09 23:08 | NUR ---
PT TAKEN FOR SCAN
--- NOTE | 2019-12-09 23:57 | NUR ---
PT BACK FROM ORDERED VQ SCAN AT THIS TIME. PT FAMILY GIVEN PASSCODE TO CALL. 1557. PT DENIES NEEDS AT THIS TIME. WILL CONTINUE TO MONITOR.
[2019-12-10] VITALS (13 sets, daily range): BP systolic 108–143; BP diastolic 41–54; Ht 172.7 cm; Wt 106.6 kg
[2019-12-10 02:15] LABS: CKMB 2.8 U/L (0.0-3.6); CREATINE KINASE 67 UL (21-215); TROPONIN-I < 0.017 ng/mL (0.000-0.060)
--- NOTE | 2019-12-10 02:29 | NUR ---
PT RESTING LEFT SIDE LYING, RESPIRATIONS EVEN AND UNLABORED. WILL CONTINUE TO MONITOR.
--- NOTE | 2019-12-10 04:31 | NUR ---
PT AMBULATED TO RESTROOM WITH CANE, GAIT STEADY.
--- NOTE | 2019-12-10 07:05 | NUR ---
BEDSIDE REPORT GIVEN TO NATY MURDOCK
[2019-12-10 08:18] LABS: % SATURATION 26 % (15-55); IRON 69 ug/dl (35-150); TOTAL IRON BIND CAPACITY 258 ug/dl (260-445); UNSAT IRON BIND CAPACITY 189 ug/dl (150-375)
[2019-12-10 08:30] LABS: CKMB 2.8 U/L (0.0-3.6); CREATINE KINASE 62 UL (21-215); FERRITIN 123 ng/mL (3-244); TROPONIN-I < 0.017 ng/mL (0.000-0.060)
--- NOTE | 2019-12-10 09:55 | NUR ---
JONO WITH CARDIOLOGY NOTIFIED OF CONSULT.
--- NOTE | 2019-12-10 11:51 | NUR ---
FSBS [id number]
--- NOTE | 2019-12-10 15:00 | NUR ---
RECEIVED BEDSIDE REPORT. PATIENT IS RESTING COMFORTABLY IN BED. RESPIRATIONS ARE EVEN AND UNLABORED. NO S/S OF DISTRESS. NO C/O PAIN. CALLLIGHT WITHIN REACH. WILL CPOC.
[2019-12-10 15:08] LABS: CKMB 3.2 U/L (0.0-3.6); CREATINE KINASE 66 UL (21-215)
[2019-12-10 15:19] LABS: TROPONIN-I < 0.017 ng/mL (0.000-0.060)
[2019-12-10 16:58] LABS: BASOPHILS 0.9 % (0-2); EOSINOPHILS 3.4 % (0-7); HEMATOCRIT 31.5 % (36.0-48.0); HEMOGLOBIN 10.2 g/dL (12-16); LYMPHOCYTES 39.3 % (15-50); MCH 32.5 pg (26.0-34.0); MCHC 32.4 g/dL (31.0-37.0); MCV 100.3 fL (80.0-100.0); MEAN PLATELET VOLUME 10.1 fL (7.4-10.4); MONOCYTES 7.6 % (2-11); NEUTROPHILS 47.8 % (40-80); PLATELET COUNT 252 10x3/uL (130-400); RBC 3.14 10x6/uL (4.00-5.40); RDW 13.7 % (11.5-14.5); WBC 6.8 10x3/uL (4.8-10.8)
[2019-12-10 17:02] LABS: ANION GAP 15.2 mmol/L (8-16); CALCIUM 9.2 mg/dL (8.5-10.1); CARBON DIOXIDE 22.9 mmol/L (21.0-32.0); POTASSIUM - SERUM 5.1 mmol/L (3.5-5.1)
[2019-12-11] VITALS: BP 118/41
[2019-12-11 05:00] LABS: BASOPHILS 0.4 % (0-2); EOSINOPHILS 3.3 % (0-7); HEMATOCRIT 31.3 % (36.0-48.0); HEMOGLOBIN 10.2 g/dL (12-16); IMMATURE GRANULOCYTES 0.6 % (0-5); LYMPHOCYTES 33.2 % (15-50); MCH 32.3 pg (26.0-34.0); MCHC 32.6 g/dL (31.0-37.0); MCV 99.1 fL (80.0-100.0); MEAN PLATELET VOLUME 9.6 fL (7.4-10.4); MONOCYTES 8.6 % (2-11); NEUTROPHILS 53.9 % (40-80); PLATELET COUNT 226 10x3/uL (130-400); RBC 3.16 10x6/uL (4.00-5.40); RDW 13.5 % (11.5-14.5); WBC 7.2 10x3/uL (4.8-10.8)
[2019-12-11 05:09] LABS: ANION GAP 13.5 mmol/L (8-16); CALCIUM 8.8 mg/dL (8.5-10.1); CARBON DIOXIDE 25.6 mmol/L (21.0-32.0); CREATININE - SERUM 1.9 mg/dL (0.6-1.3); MAGNESIUM - SERUM 1.5 mg/dL (1.8-2.4); POTASSIUM - SERUM 5.1 mmol/L (3.5-5.1)
--- NOTE | 2019-12-11 07:15 | NUR ---
RECEIVED PT UP AND ABOUT IN ROOM AAOX4 DENIES ANY DISCOMFORT OR NEEDS AT THIS TIME
[2019-12-11 09:00] VITALS: BP 152/72
[2019-12-11] MEDS ORDERED: ENTRESTO 24 MG1 EACH PO (15:56)
[2019-12-11] MEDS ORDERED: RANEXA500 MG PO (15:56)
--- NOTE | 2019-12-11 15:58 | NUR ---
PER DR POON PT IS TO CONTINUE ENTRESTO AND RANEXA. CALLED IN TO [facility] [address], SPOKE WITH PHARMACIST, YAJAIRA.
--- NOTE | 2019-12-11 16:05 | NUR ---
REVIEWED DISCHARGE INSTRUCTIONS WITH PT STATES UNDERSTANDING COPY GIVEN DCD SALINE LOCK TO LFA WITH IV CATHETER INTACT SITE FREE OF REDNESS OR EDEMA PT DISCHARGED HOME IN STABLE CONDITION WITH ALL PERSONAL BELONGINGS LEFT UNIT VIA W/C
== END 2019-12-11 16:05 | disposition home or self-care (01) ==
LOC: D.ER 20:09 → D.EDHOLD 20:49 → OBSVTIME 20:49 → D.EDHOLD 20:49 → D.M2 12-10 12:08
PROVIDERS: Family Medicine; ADMIT Family Medicine; ATTEND Family Medicine
DX: R07.9 Chest pain, unspecified (principal); E11.65 Type 2 diabetes mellitus with hyperglycemia; D64.9 Anemia, unspecified; E87.1 Hypo-osmolality and hyponatremia; N17.9 Acute kidney failure, unspecified; E83.42 Hypomagnesemia; I25.10 Atherosclerotic heart disease of native coronary artery without angina pectoris; I11.0 Hypertensive heart disease with heart failure; I50.9 Heart failure, unspecified; E11.40 Type 2 diabetes mellitus with diabetic neuropathy, unspecified; M19.90 Unspecified osteoarthritis, unspecified site; E78.5 Hyperlipidemia, unspecified; I42.9 Cardiomyopathy, unspecified

== ENCOUNTER → 2020-01-27 10:01 | Outpatient (CLI) | payer MEDICARE ==
[2019-12-10 14:47] VITALS: BMI 35.7
--- NOTE | ~2020-01-27 | EC ---
PATIENT:SABIHA POP DATE OF SERVICE: 01/27/20 SEX: F MEDICAL RECORD: [id number] DATE OF : 41 LOCATION:[facility] AGE OF PATIENT: 74 ADMISSION DATE: 01/27/20 REFERRING PHYSICIAN: INTERPRETING PHYSICIAN: PHIL MIRANDA MD ECHOCARDIOGRAM REPORT ECHO CHARGES 4 ECHO COMPLETE Date: 01/27/20 CLINICAL DIAGNOSIS: CHEST PAIN,ASSESS EF DYSPNEA AND HTN ECHOCARDIOGRAPHIC MEASUREMENTS (adult normal given) AC root (d.<3.7cm) 4.1 cm LV Septum d (<1.2 cm> 1.5 cm Valve Excursion 1.3 cm LV Septum (systole) 1.8 cm Left Atria (s.<4.0cm> 3.6 cm LVPW d(<1.2cm) 1.6 cm RV (d.<2.3cm) 3.9 cm LVPW (sytole) 1.8 cm LV diastole(<5.6CM) 5.2 cm MV E-F(>70mm/sec) cm LV systole 3.7 cm LVOT Diameter 1.9 cm MV exc.(>10mm) 1.3 cm Est.ejection fraction (50-75%) % DOPPLER: LVIT cm/sec A 114.0cm/sec E 62.0 cm/sec LA cm/sec RVSP 23 mmHg LVOT 62 cm/sec AOP1/2T m/s Asc. Ao 167 cm/sec RVOT 79 cm/sec RA cm/sec PA 131 cm/sec AV Gradient Peak 11.14mmHg AV Mean 5.94 mmHg AV Area 1.7 cm MV Gradient Peak 4.61 mmHg MV Mean 1.59 mmHg MV Area cm COMMENTS: Automation Tester: 2 YANE GILLIAM Car Wiper: 3 Dr. Samano TAPE# PACS Pericardial Effusion N DATE OF SERVICE: Adequate 2D, color flow imaging, spectral Doppler, and M-Mode. LVH is present. LV internal dimensions are normal. LV is mildly globally hypo with EF mildly reduced 40-45%. Aortic valve is sclerotic without stenosis by Doppler interrogation. Left atrium is normal at 3.6 cm. Mitral valve shows no prolapse. Trace MR. Right-sided chambers are grossly normal. Mild TRANSINT:[id number] Voice Confirmation ID: [id number] DOCUMENT ID: [id number] ECHOCARDIOGRAM REPORT [id number] SABIHA POP GREGORY A MD CC: [id number] DICTATION DATE: 01/29/20 1017 MANAGER GYN: 01/29/[id number] DEP CLI 01/27/20 [place] [id number] [place] [id number]
[~2020-01-27 10:01] MED LIST changes: +ENTRESTO 24 MG1 EACH PO; +RANEXA500 MG PO
== END | disposition home or self-care (01) ==
LOC: D.HCCECHO 10:00
PROVIDERS: ATTEND Internal Medicine Interventional Cardiology
DX: R07.9 Chest pain, unspecified (principal)